=== PATIENT | female | born 1995 | race Caucasian/White ===

== ENCOUNTER 2024-12-31 08:52 | Emergency (ER) | payer OTHER, SELFPAY ==
--- NOTE | ~2024-12-31 | CT_ITS ---
EXAMINATION: CT abdomen pelvis wo con DATE: 12/31/2024 09:48 INDICATION: Abdominal pain. Nephrolithiasis. Hematuria. TECHNIQUE: Computed tomography (CT) of the abdomen and pelvis was performed without intravenous contr ast. Automated exposure control and iterative reconstruction technique were employed. The dose-length product was 960.03 mGy-cm. COMPARISON: None FINDINGS: Lung bases are clear. Heart size is normal. No pericardial or pleural effusion. Postoperative change of prior sleeve gastrectomy with suture line along the greater curvature of the stomach. Gallbladder not visualized and likely surgically absent. Liver, spleen, pancreas and bilateral adrenal glands are normal. Bilateral kidneys are normal with no nephrolithiasis or hydronephrosis. Bladder is decompres sed which limits evaluation. There is a 2 mm calcification in the deep left pelvis which appears more likely to represent a phlebolith than a stone in the distalmost left ureter. Bowels including the ap pendix are normal. Anteverted uterus and bilateral adnexa are normal. No free intraperitoneal gas or fluid. No pathologi phu enlarged abdominal or pelvic lymphadenopathy. Mild thoracic spondylosis with chronic appearing likely physiologic mild anterior wedging at T10-T12. IMPRESSION: 1. 2 mm calcification in the deep left pelvis which appears more likely near but not definitively blaine ng the distalmost left ureter and would favor a phlebolith over nonobstructing renal stone. No hydron ephrosis or hydroureter. 2. No other acute intra-abdominal/pelvic process. Reviewed, dictated and finalized at location A. IMPRESSION: 1. 2 mm calcification in the deep left pelvis which appears more likely near bu t not definitively along the distalmost left ureter and would favor a phlebolit h over nonobstructing renal stone. No hydronephrosis or hydroureter. 2. No other acute intra-abdominal/pelvic process.
[2024-12-31 08:57] VITALS: BP 137/91; PULSE 86; RESP 16; TEMP 36.4; O2SAT 98
--- OUTSIDE RECORDS SUMMARY | 2024-12-31 08:59 | XMS_ITS | Data Portability ---
Author Organization [facility] Address [address] [place] [address] Assessment No assessment recorded. Plan of Treatment Reminders Order Date Submit Date Provider Last Modified By Organization Details Last Modified Time Details Appointments None recorded. Lab SARS CoV 2 RNA (COVID-19), QL, stem sizer-PCR, respiratory specimen - SOB, exposed to pos COVID person [email or web address] 2019 020 [facility] ([facility]), [address] [place], [address], 0 17:47:17 hepatitis B surface Ab, quantitativ e, serum 2016 017 [facility], [address] [place] [address], [place] [address], [place], [address], 7 06:12:15 unlisted lab - bpertig+dip Ab+tetigg 2016 017 [facility], [address] [place] [address], [facility] [address], [place], [address], 7 06:12:14 MMR immunity, serum 2016 017 [facility], [address] [place] [address], [place] [address], [place], [address], 7 06:12:15 varicella-z alberto igg Ab screen, serum 2016 017 [facility], [address] [place] [address], [address], [place], [address], 7 06:12:16 unlisted lab - compliance drug analysis, ur 2016 017 [facility], [address] [facility], [address], [place], [address], 7 20:10:19 Referral None recorded. Procedures None recorded. Surgeries None recorded. Imaging None recorded. Medication Orders None recorded. Patient TargetsNo targets recorded. Patient Instructions Encounter Date Encounter Id Patient Instructions Last Modified By Organization Details Last Modified Time 11/01/2016 [id number] When You Want to Lose Weight: Care Instructions [facility] Not available 11/01/2016 14:40:06 She can not provide the record of previous immunization, therefore will do the serum titer. She has been informed about procedure of 2 steps Mantoux TB skin tests, will re-schedule the visit. [facility] Not available 11/01/2016 14:50:00 02/17/2020 [id number] Reviewed the following recommendations: -Stay home and separate from others as much as possible. -Monitor your symptoms and seek medical attention for trouble breathing, persistent chest pain, confusion, or bluish lips or face. -Wear a mask if you must be around other people. -Wash your hands often for 20 seconds with soap and water and clean high-touch surfaces daily -You may discontinue home isolation if your symptoms are improving and it has been 10 days since symptoms started. [email or web address] Not available 02/17/2020 13:09:05 Reason for Referral None Reported. Results Created Date Observation Date Name Description Value Unit Range Abnormal Flag Note LastModifiedBy Organization Detail LastModifiedTime 11/02/19 17 11/05/2016 bpert ig+di p Ab+te tigg tetanus antitoxoid IgG Ab 0.16 IU/mL <0.10 INTER PRETA TION: NON-P ROTEC TIVE <0.10 PROTE CTIVE >=0.1 0 RESUL TS FOR THIS TEST ARE FOR RESEA RCH PURPO SES ONLY BY THE ASSAY 'S MANUF ACTUR ER. THE PERFO RMANC E LON CTERI STICS OF THIS PRODU CT HAVE NOT BEEN ESTAB LISJOSETTE D. RESUL TS SHOUL D NOT BE USED A DIAGN OSTIC PROCE DURE WITHO UT CONFI RMATI ON OF THE DIAGN OSIS BY [facility] MEDIC ALLY ESTAB LISHE D DIAGN OSTIC PRODU CT OR PROCE DURE. Not Available [facility] ([facility]) [address] [place], [address], 11/06/2016 06:12:14 11/02/19 17 11/05/2016 bpert ig+di p Ab+te tigg diphtheria antitoxoid Ab 0.15 IU/mL <0.10 INTER PRETA TION: NON-P ROTEC TIVE <0.10 PROTE CTIVE >=0.1 0 FOR RESEA RCH USE ONLY. Not Available [facility] ([facility]) [address] [place], [address], 11/06/2016 06:12:14 11/02/1911/05/2016 bpert ig+di p Ab+te tigg B pertussis IgG Ab <0.95 index 0.00-0 .94 NEGAT BLUE <0.95 EQUIV OCAL 0.95 - 1.04 POSIT BLUE >1.04 Not Available [facility] ([facility]) [address] [place], [address], 11/06/2016 06:12:14 11/02/19 17 11/02/2016 MMR immun ity, serum rubella antibodies, IgG <0.90 index immune >0.99 below low normal NON-I MMUNE <0.90 EQUIV OCAL 0.90 - 0.99 IMMUN E >0.99 Not Available [facility] ([facility]) [address] [place], [address], 11/06/2016 06:12:15 11/02/19 17 11/02/2016 MMR immun ity, serum rubeola Ab, IgG <25.0 AU/mL immune >29.9 below low normal NEGAT BLUE <25.0 EQUIV OCAL 25.0 - 29.9 POSIT BLUE >29.9 PRESE NCE OF ANTIB ODIES TO RUBEO LA IS PRESU MPTIV E EVIDE NCE OF IMMUN ITY EXCEP T WHEN ACUTE INFEC TION IS SUSPE CTED. Not Available [facility] ([facility]) [address] [facility], [place], [address], 11/06/2016 06:12:15 11/02/19 17 11/02/2016 MMR immun ity, serum mumps abs, IgG 11.8 AU/mL immune >10.9 NEGAT BLUE <9.0 EQUIV OCAL 9.0 - 10.9 POSIT BLUE >10.9 A POSIT BLUE RESUL T GENER ALLY INDIC ATES PAST EXPOS URE TO MUMPS VIRUS OR PREVI OUS VACCI NATIO N. Not Available [facility] ([facility]) [address] [facility], [place], [address], 11/06/2016 06:12:15 11/02/19 17 11/02/2016 hepat itis B surfa ce Ab, quant itati ve, serum hepatitis B surf Ab quant <3.1 mIU/m L immuni ty>9.9 below low normal STATU S OF IMMUN ITY ANTI- HBS LEVEL ----- ----- ----- --- ----- ----- ---- INCON SISTE NT WITH IMMUN ITY 0.0 - 9.9 CONSI STENT WITH IMMUN ITY >9.9 Not Available [facility] ([facility]) [address] [facility], [place], [address], 11/06/2016 06:12:15 11/02/19 17 11/02/2016 varic luba- zoste r igg Ab scree n, serum varicella zoster IgG <135 index immune >165 below low normal NEGAT BLUE <135 EQUIV OCAL 135 - 165 POSIT BLUE >165 A POSIT BLUE RESUL T GENER ALLY INDIC ATES EXPOS URE TO THE PATHO GEN OR ADMIN ISTRA TION OF SPECI FIC IMMUN OGLOB ULINS , BUT IT IS NOT INDIC ATION OF ACTIV E INFEC TION OR STAGE OF DISEA SE. Not Available [facility] ([facility]) [address], [place], [address], 11/06/2016 06:12:15 11/02/19 17 11/07/2016 drug scree n, urine summary FINAL ===== ===== ===== ===== ===== ===== ===== ===== ===== ===== ===== ===== ===== === TOXAS SURE COMP DRUG VENESSA SIS,U R ===== ===== ===== ===== ===== ===== ===== ===== ===== ===== ===== ===== ===== === TEST RESUL T FLAG UNITS NO DRUGS DETEC ANKITA. ===== ===== ===== ===== ===== ===== ===== ===== ===== ===== ===== ===== ===== === TEST RESUL T FLAG UNITS REF RANGE CREAT ININE 72 MG/DL >=20 ===== ===== ===== ===== ===== ===== ===== ===== ===== ===== ===== ===== ===== === DECLA RED MEDIC ATION S: MEDIC ATION LIST WAS NOT PROVI DED. ===== ===== ===== ===== ===== ===== ===== ===== ===== ===== ===== ===== ===== === FOR CLINI JOSH CONSU LTATI ON, PLEAS E CALL [phone] ===== ===== ===== ===== ===== ===== ===== ===== ===== ===== ===== ===== ===== === Not Available [facility] [address], [place], [address], 11/07/2016 20:10:19 11/02/19 17 11/07/2016 drug scree n, urine pdf . Not Available [facility] [address], [place], [address], 11/07/2016 20:10:19 Result Notes None recorded. Procedures Surgical History Date Name Laterality Status Provider Name and Address Organization Details Recorded Time Cholecystectomy completed Attila Boswell [place] - [facility] 11/01/2016 14:06:33 Imaging Results None recorded. Procedure Notes None recorded. Medical Equipment None Reported. Allergies No known drug allergies Medications Name Sig Start Date Stop Date Status Note LastModified by Organization Details LastModified Time ibuprofen 800 mg tablet active Not Available Not Available Not Available metronidazole 500 mg tablet 11/01 completed Not Available Not Available Not Available acetaminophen 300 mg-codeine 30 mg tablet active Not Available Not Available Not Available sulfamethoxazole 800 mg-trimethoprim 160 mg tablet active Not Available Not Availabl e Not Available amoxicillin 500 mg tablet active Not Available Not Available No t Available hydrocodone 7.5 mg-acetaminophen 325 mg tablet active Not Available Not Availabl e Not Available cephalexin 500 mg capsule active Not Available Not Available N ot Available ranitidine 150 mg tablet active Not Available Not Available No t Available prednisone 50 mg tablet active Not Available Not Available Not Available promethazine 25 mg tablet active Not Available Not Available No t Available ibuprofen 600 mg tablet active Not Available Not Available Not Available loratadine 10 mg tablet active Not Available Not Available Not Available neomycin-polymyx in-hydrocort 3.5 mg-10,000 unit/mL-1 % ear drops,susp active Not Available Not Available N ot Available chlorhexidine gluconate 0.12 % mouthwash active Not Available Not Available No t Available [place] 0.25 mg-0.035 mg tablet active Not Available Not Available Not Available Vitals Date Recorded Body height Body weight Body mass index (BMI) Body temperature Oxygen saturation Oxygen saturation in Arterial blood by Pulse oximetry Heart rate Systolic blood pressure Diastolic blood pressure Provider Name and Address Organization Details Last Updated DateTime 7 172.72 cm 373491 g 51.8 kg/m2 97.4 [degF] 98 % 98 % 95 /min 112 mm[Hg] 68 mm[Hg] Attila Boswell MA [place] - [facility] 7 14:13:38 Date Recorded Body height Provider Name an d Address Organization Details Last Updated DateTime 11/05/2016 172.72 cm Tyler Zimmerman MD Attn: [address] [place], [address], [place] - [facility] 11/07/2016 18:36:25 Social History None recorded. Functional Status Question Answer Note LastModified by Organizat ion Details LastModified Time What is your level of alcohol consumption? Occasional [email or web address] Information not available 11/01/2016 Mental Status None recorded. Family History Nothing Reported. Medical History Condition Response Acid Reflux (GERD) Y Headaches Y Gynecological History Statement/Question Response Date of LMP 10/09/2016 Obstetrics History GPAL:G 0 P 0 0 0 0 Past Encounters Encounter ID Performer Location Encounter Start Date Encounter Closed Date Diagnosis/Indication Diagnosis SNOMED-CT Code Diagnosis ICD10 Code Diagnosis Note [id number] Tyler Zimmerman MD [facility] (Adult Med) [address] [place] [address] 11/01/2016 13:49:21 11/01/2016 15:00:48 Adult health examination 037497754 Z00.00 Will schedule skin TB tests 2 steps at least one week aprt according her school requests. Today is . Morbid obesity 933831820 E66.01 Diet, exercise and lose weight. e agreed. [id number] [facility] [address] [place] [address] 11/05/2016 10:24:07 11/08/2016 15:31:21 [id number] TERRY Earl [address] [place] [address] 02/17/2020 11:37:02 02/18/2020 09:15:40 Suspected COVID-19 590484148 Z03.818 D/w pt the current pandemic of COVID-19 and call for social isolation in order to blunt the curve and minimize risk and spread. Encouraged patient and family to take restrictio ns seriously. They have verbalized understand ing of such. Viral syndrome 876131008 B34.9 Health Concerns Section Related Observation LastModified by Organization Detai ls LastModified Time None Recorded Concern Status LastModified by Organization Details LastModified Time None Recorded Advance Directives Directive None Recorded Payers Encounter Date Sequence Insurance Name Policy Number Policy Goodson Covered Member ID Goodson Member ID Guarantor Name 11/01/2016 1 [facility] (MEDICAID HMO) [id number] Mell Malady [id number] Mell Malady 11/05/2016 1 [facility] (MEDICAID HMO) [id number] Mell Malady [id number] Mell Malady 02/17/2020 1 [facility] (MEDICAID HMO) [id number] Mell Malady [id number] Mell Malady Notes Date Note Type Note Provider Name and Address Organization Details Recorded Time 02/17/2020 text/html COVID ScreeningReported bypatient.Onset/Durati on of fever:no fever Associated Symptoms:shortness of breath; no cough; no shortness of breathCOVID-19 Symptoms December 2019Reported bypatient.COVID-19 Signs and Symptomscough resolved; fever resolved; shortness of breath resolved; shortness of breath same; chills resolved; repeated shaking with chills resolved; muscle pain resolved; headache resolved; sore throat resolved; loss of taste or smell resolved; vomiting or diarrhea resolved; fatigue resolved; anorexia resolved Contacts and Exposureclose contact with a confirmed or suspected case of COVID-19 Associated Symptoms:no sputum production; no wheezing; no runny nose; no vomiting; no diarrhea; no body aches; no nausea; no change in mental status; no hypotension; no tachycardia 24 yo female ,spoke via phone with C/O, SOB, exposed to pos COVID person ISAAC Contreras NP Attn: [address]ing[address] [place], [address], [facility] 02/17/2020 13:09:44 OBGyn Episode No OBEpisode recorded.
--- OUTSIDE RECORDS SUMMARY | 2024-12-31 09:00 | XMS_ITS | Continuity of Care Document ---
Author Organization [facility] Address [address] [facility] [place] [address] Phone Care Team Providers Care Galley Cook Name Role Phone Will Moore MD Unavailable Unavailable Allergies, Adverse Reactions, Alerts Substance Reaction Status Criticality No Known Allergies Active No Inform ation Medications Medication Instructions Dosage Effective Dates (start - stop) Status Comments No Drug Therapy Prescribed Procedures Procedure Date OFFICE/OUTPATIENT VISIT, EST OFFICE/OUTPATIENT VISIT, EST PREV VISIT, NEW, AGE 18-39 OFFICE/OUTPATIENT VISIT, NEW Advance Directives Directive Yes / No Effective Date File Name No Information Encounters Encounter Description Practice Location Reason(s) For Visit Diagnoses Date Provider Providers Copied on Encounter OFFICE/OUTPA TIENT VISIT, [facility], [address] [place], [address], [place] tel:[phone] [facility], [place] D (chief complaint) glucose1 (chief complaint) anemia1 (chief complaint) obesity1 (chief complaint) HyperglycemiaVitami n D deficiency, unspecifiedAnemiaBo dy mass index (BMI) 50-59.9 , adult Jun- 7 Oscar Solis. [address] [place], [place], [address] , [place]. tel:[phone] Referring Provider: Will Moore, [address] [facility] [place], [address]. tel:[phone] OFFICE/OUTPA TIENT VISIT, [facility], [address] [facility] [place], [place], [address], [place] tel:[phone] [facility], [place] obesity1 (chief complaint) HTN (chief complaint) Essential (primary) hypertensionBody mass index (BMI) 50-59.9 , adult 7 Oscar Solis. [address], [place], [place], [address] , . tel:[phone] Referring Provider: T[address], [place], [place], [address]. tel:[phone] PREV VISIT, NEW, AGE 18-39 [facility], [address], [place], [place], [address], tel:[phone] [facility], [place] PHysical (chief complaint) Encounter for general adult medical exam w abnormal findingsBody mass index (BMI) 50-59.9 , adultGERD w/o esophagitisEssentia l (primary) hypertension 7 Oscar Solis. [address], [address], [place], [place], [address] , . tel:[phone] Referring Provider: Tad [address], [place], [place], [address]. tel:[phone] Family History Family Member Type Diagnosis Age At Onset Brother Problem (finding) Alive and well Mother Problem (finding) Hypertension Father Problem (finding) Unknown Mother Problem (finding) Obesity Payers Payer name Insurance type Covered republican ID Authoriza tion(s) No Information Social History Type Description Quantity Date Captured Comments Alcohol Use Details beer Caffeine Use Details Unknown Tobacco Use Status Never smoked tobacco 2016 Smoking Status Never smoker Sex Female Vital Signs Date / Time: Height Weight BMI Pulse Rate Blood Pressure Temperature Respiratory Rate Body Surface Area Head Circumference BMI percentile Pulse Ox Inhaled Ox 1:00 PM 172.72 cm 362.00 lbs 55.0 4 kg/m eter (2) 78 /min 122/70 mm[Hg] 97.4 F 16 /min Chief Complaint And Reason For Visit From encounter dated '06/26/2017 11:00'. D (chief complaint). Description: Pt has low vitamin D. glucose1 (chief complaint). Description: Pt has mild high glucose. Pt denies any polyuria, polyripsia anemia1 (chief complaint). Description: Pt has mild anemia. Pt states that she has rather heavy period. Pt denies any dizziness pt denies any GI blood loss obesity1 (chief complaint). Description: Pt is morbidly obese Pt will do bypass surgery. pt needs monthly weight assessment form completed. Pt failed diet and exercise Plan Of Treatment Date Type Action Status No Information History Of Present Illness Encounter Date Complaint History Of Prese nt Illness D Pt has low vitam in D. glucose1 Pt has mild high glucose. Pt denies any polyuria, polyripsia anemia1 Pt has mild anem ia. Pt states that she has rather heavy period. Pt denies any dizziness pt denies any GI blood loss obesity1 Pt is morbidly o bese Pt will do bypass surgery. pt needs monthly weight assessment form completed. Pt failed diet and exercise obesity1 Pt is obese. Pt has been trying diet and exercise without any weight loss.Pt just attended the seminar and she wants to do the bypass surgery. Pt needs monthly weight assessment HTN Her BP is ok tod ay. PHysical Pt needs annual physical Pt is morbidly obese.. Her BMI is over 50 Pt has intermittent GERD symptoms pt drinks milk for symptoms which helps. Pt denies any abd pain. Pt feels burning sensation midepigastric area. PT denie any abd pain. Pt wants weight loss surgery Medications Administered Medication Instructions Dosage Effective Dates (start - stop) Status Comments No Drug Therapy Prescribed Instructions Date Instruction Additional Infor mation Prescribed Activity and Exercise Education Related to Dietary Surveillance and Counseling Prescribed Diet Educ ation/Lifestyle Education Regarding Diet Related to Dietary Surveillance and Counseling Increase physical activity Relat ed to Hyperglycemia Weight management Related to Hyp erglycemia Prescribed Activity and Exercise Education Related to Dietary Surveillance and Counseling Prescribed Diet Educ ation/Lifestyle Education Regarding Diet Related to Dietary Surveillance and Counseling Increase activity. Related to Es sential (primary) hypertension Follow a low sodium diet. Relate d to Essential (primary) hypertension Prescribed Activity and Exercise Education Related to Dietary Surveillance and Counseling Prescribed Diet Educ ation/Lifestyle Education Regarding Diet Related to Dietary Surveillance and Counseling Prescribed Activity and Exercise Education Related to Dietary Surveillance and Counseling Prescribed Diet Educ ation/Lifestyle Education Regarding Diet Related to Dietary Surveillance and Counseling Assessments Type Assessment Date assessment Hyperglycemia assessment Vitamin D deficiency, unspecifie d assessment Anemia assessment Body mass index (BMI) 50-59.9 , adult Mental Status Date Cognitive Assessment Orientation - Walton ed to time, place, person, situation.
--- OUTSIDE RECORDS SUMMARY | 2024-12-31 09:00 | XMS_ITS | Continuity of Care Document ---
Author Organization [facility] Address [address] [facility] [address] [place] [address] Phone Care Team Providers Care Cause Analyst Name Role Phone Michelle OD, Dmitriy Unavailable Unavailable Advance Directives Directive Yes / No Effective Date File Name No Information Encounters Encounter Description Practice Location Reason(s) For Visit Diagnoses Date Provider Providers Copied on Encounter [facility], [address], [place], [place], [address], [place] tel:[phone] [facility] No Information May- 2-200 3 Michelle OD Dmitriy. [address] , [address], [place], [address], [place]. tel:[phone] Family History Family Member Type Diagnosis Age At Onset No Information Payers Payer name Insurance type Covered green party ID Authoriza tion(s) Medicaid [facility] [id number] Social History Type Description Quantity Date Captured Comments Sex Female Smoking Status No Information Chief Complaint And Reason For Visit No Information Reason For Referral Reason For Referral No Information History Of Present Illness Encounter Date Complaint History Of Prese nt Illness No Information Functional Status Date Functional Assessmen t No Information Instructions Date Instruction Additional Infor mation No Information Assessments Type Assessment Date No Information Patient Care Teams Name Effective Dates (start - stop) Status Members No Information
--- OUTSIDE RECORDS SUMMARY | 2024-12-31 09:00 | XMS_ITS | Continuity of Care Document ---
Author Organization [facility] Address [address] [facility] [address] [place] [address] Phone Care Team Providers Care Landscape Horticulture Instructor Name Role Phone Will Moore MD Unavailable Unavailable Advance Directives Directive Yes / No Effective Date File Name No Information Encounters Encounter Description Practice Location Reason(s) For Visit Diagnoses Date Provider Providers Copied on Encounter [facility], [address] [place] [place], [address], [place] tel:[phone] [facility] No Information Oscar Solis. [address] [place], [address], [place]. tel:[phone] Family History Family Member Type Diagnosis Age At Onset No Information Payers Payer name Insurance type Covered democrat ID Authoriza tion(s) No Information Social History Type Description Quantity Date Captured Comments Sex Female Smoking Status No Information Chief Complaint And Reason For Visit No Information Plan Of Treatment Date Type Action Status No Information History Of Present Illness Encounter Date Complaint History Of Prese nt Illness No Information Instructions Date Instruction Additional Infor mation No Information Assessments Type Assessment Date No Information
--- OUTSIDE RECORDS SUMMARY | 2024-12-31 09:00 | XMS_ITS | Data Portability ---
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 All staff wore face coverings during this encounter, as well as provided additional cleaning and sanitizing of all surfaces, including countertops, pens, chairs, door handles, light switches, etc, prior to and following the patient s visit. [email or web address] Not available 09/23/2020 09:40:10 10/13/2021 10/13/2021 Annual gynecological exam performed. Patient will come back in a year unless there are new symptoms. [email or web address] Not available 10/13/2021 12:40:38 06/11/2024 06/11/2024 Annual gynecological exam performed. Patient will come back in a year unless there are new symptoms. [email or web address] Not available 06/11/2024 12:31:30 Plan of Treatment Reminders Order Date Submit Date Provider Last Modified By Organization Details Last Modified Time Details Appointments None recorded. Lab pap, IG + HR HPV - HPV regardless but if HPV is positive need subtyping 16,18/45 2023 024 [facility] (Lab), [address], [place], [address], 18:22:16 Referral None recorded. Procedures None recorded. Surgeries None recorded. Imaging None recorded. Medication Orders mupirocin 2 % topical ointment 2021 [email or web address] [id number], [address], [place], [place], [id number], 2 12:43:06 Bactrim DS 800 mg-160 mg tablet 2021 [email or web address] [facility] #[id number], [address], [place], [place], [id number], 2 12:43:11 Diflucan 150 mg tablet 2021 [email or web address] [facility] #[id number], [address], [place], [place], [id number], 2 12:43:03 nystatin 100,000 unit/gram topical powder 2021 022 [email or web address] [facility] #[id number], [address] , [place], [place], [id number], 4 12:40:50 Patient TargetsNo targets recorded. Patient Instructions Encounter Date Encounter Id Patient Instructions Last Modified By Organization Details Last Modified Time 09/23/2020 [id number] urine to be sent for culture [place] [id number] Not available 09/23/2020 09:39:55 Reason for Referral None Reported. Results Created Date Observation Date Name Description Value Unit Range Abnormal Flag Note LastModifiedBy Organization Detail LastModifiedTime 08/10/19 21 08/12/2020 pap, LB Pap test thin prep Negati ve for Intrae pithel ial Lesion or Malign jose normal ACCES SABRINA #: [id number] Sourc e: Cervi josh/E ndoce rvica l LMP: 2019 Date Taken : 08/10 Speci men Type: ThinP rep Vial Date Repor ashleigh: 021 Clini josh Data: Cytot ech: Treas erasto [place] s, CT( CP) Date Repor ashleigh: 021 Speci men Adequ acy: Satis facto ry for evalu ation Endoc ervic al/tr ansfo rmati on zone compo nent prese nt Gener al Categ oriza tion: NEGAT BLUE FOR INTRA EPITH ELIAL LESIO N OR MALIG ROBERTO The follo wing tests have been order ed as reque sted and a separ ate repor t will be issue d: Chlam ydia, Gonor rhoea e, and Trich omona s This speci men has been wilda zed by the ThinP rep Imagi ng Syste m, an inter activ e compu ter syste m which irene ts the lab in the [facility] of ThinP rep Pap Test slide s. Follo wing imagi ng, the slide was revie wed by a Cytot echno logis t and/o r Patho logis t. End of Repor t Techn ical servi ana provi ded by Ass iated Patho logis ts, [facility], d/b/a Path[facility] hillman, [address] [place] [address] De Gomez MD, Labor ator Dire tor. Case revie wed and diagn osis rende red at [facility] iated Patho logis ts, [facility], d/b/a Shavon blanchard, [address] [place] [address] De Gomez MD, Labor ator Dire tor. CONFI DENTI AL Not Available [facility] ([facility]) [address], [place], [address], 08/12/2020 09:31:54 08/10/19 21 08/12/2020 CT + NG DNA, PCR, unspe cifie d speci men trichomonas vaginalis, aptima (panther) NOT DETECT ED normal DNA testi ng perfo rmed by Trans cript ion Media ashleigh Ampli ficat ion (TMA) These resul ts shoul d be inter prete d in light of all clini josh and labor atory findi ngs. This assay is highl y accur ate, but rare false posit blue and negat blue resul ts may occur . Posit blue resul ts in low preva lence popul ation s may requi re re-ev aluat ion. A negat blue resul t does not precl ude a possi ble infec tion due to a speci men inade quacy or sampl ing error . Test perfo rmed by [facility], [facility], d/b/a [facility], [address], [place] [address] , Chapo Mcginnis ra, DO, Labor atory Direc tor. Not Available [facility] ([facility]) [address], [place], [address], 08/12/2020 09:31:54 08/10/19 21 08/12/2020 CT + NG DNA, PCR, unspe cifie d speci men neisseria gonorrhoeae, aptima NOT DETECT ED normal DNA testi ng perfo rmed by Trans cript ion Media ashleigh Ampli ficat ion (TMA) These resul ts shoul d be inter prete d in light of all clini josh and labor atory findi ngs. This assay is highl y accur ate, but rare false posit blue and negat blue resul ts may occur . Posit blue resul ts in low preva lence popul ation s may requi re re-ev aluat ion. A negat blue resul t does not precl ude a possi ble infec tion due to a speci men inade quacy or sampl ing error . Test perfo rmed by [facility] i[facility], [facility], d/b/a [facility] roup, [address], [place] [address] , Chapo Mcginnis ra, DO, Labor atory Direc tor. Not Available [facility] ([facility]) [address], [place], [address], 08/12/2020 09:31:54 08/10/19 21 08/12/2020 CT + NG DNA, PCR, unspe cifie d speci men chlamydia trachomatis, aptima DETECT ED abnormal DNA testi ng perfo rmed by Trans cript ion Media ashleigh Ampli ficat ion (TMA) These resul ts shoul d be inter prete d in light of all clini josh and labor atory findi ngs. This assay is highl y accur ate, but rare false posit blue and negat blue resul ts may occur . Posit blue resul ts in low preva lence popul ation s may requi re re-ev aluat ion. A negat blue resul t does not precl ude a possi ble infec tion due to a speci men inade quacy or sampl ing error . Test perfo rmed by Assoc iated Patho logis ts, [facility], d/b/a Path kady, [address] [facility] [address], [place] [address] , Chapo Mcginnis ra, DO, Labor atory Direc tor. 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 FINAL DIAGN OSIS: Negat blue for Intra epith elial Lesio n or Malig roberto (NIL) . Elect zahida horne maria g d by Oriana Osullivan , CT on 2021 at 3:01 PM ----- ----- ----- ----- ----- ----- ----- ----- ----- ----- ----- ----- ----- ----- ----- ----- ----- ---- COMME NT: Note: This speci men was revie wed by a Cytot echno logis t and/o r Patho logis t (as indic ated in this repor t) after evalu ation using the Thinp rep Imagi ng Syste m. CLINI JOSH INFOR MATIO N: Menst rual Statu s: LMP (if appli cable ): Clini josh Histo ry/Pr eviou s Pap: Type of Neopl ghanshyam (if appli cable ): Signi fican t Clini josh Findi ngs: Other Histo ry: Hormo misael (if appli cable ): PAP EDUCA JULITA L NOTE: The Pap Test is a scree cameron test with an inher ent false negat blue rate. Liqui d-bas ed sampl ing may decre ase, but will not elimi marline, false negat blue resul ts. A negat blue resul t does not precl ude the prese nce and/o r devel opmen t of disea se, since the prese nce of abnor mal cells in the sampl e depen ds on the locat ion of the lesio n and sampl ing techn ique. Jona nued regul ar scree cameron is the best metho d of cance r preve ntion . If repor ashleigh cytol ogic findi ng do not corre late with physi josh and/o r histo rical findi ngs, fur er inves tigat ion is recom lexa d, as lavelle connors nted. Not Available [facility] (Lab) [address], [place], [address], 10/21/2021 16:04:17 10/14/19 22 10/13/2021 TRICH OMONA S VAGIN ALEXANDER (RRNA ) trichomonas vaginalis ribosomal RNA (rrna) Negati ve negati ve Not Available [facility] (Lab) [address] [facility], [place], [address], 10/21/2021 16:04:18 10/14/19 22 10/13/2021 CT/GC (MORALES) , THINP REP VIAL chlamydia trachomatis, PCR Negati ve negati ve Not Available [facility] (Lab) [address] [facility], [place], [address], 10/21/2021 16:04:18 10/14/19 22 10/13/2021 CT/GC (MORALES) , THINP REP VIAL neisseria gonorrhoeae, PCR Negati ve negati ve Not Available [facility] (Lab) [address] [facility], [place], [address], 10/21/2021 16:04:18 06/11/20 24 06/11/2024 IMAGE GUIDE D PAP AND HPV REGAR DLESS image guided Pap, HPV regardless of Pap result SEE RESULT S BELOW CASE REPOR T: Cytol ogy Gynec ologi josh Repor t Case: [id number] Autho maciej ramirez Provi danis: Katerin salgado, Ning , ANP, [employer]PER[employer] Colle cted: 06/11 1300 Order ing Locat ion: [place] Patho log[facility] Recei gerber: 06/12 0202 First Ortega n: Chun Camacho, CT Rescr een: Karol Taylor Speci men: Ortega barnes Pap - Image d, Cervi x STATE MENT OF ADEQU ACY: UNSAT ISFAC TORY SPECI MEN ----- ----- ----- ----- ----- ----- ----- ----- ----- ----- ----- ----- ----- ----- ----- ----- ----- ---- FINAL DIAGN OSIS: Unsat isfac tory for evalu ation . Epith elial cells obscu red by blood and infla mmati on. Elect alexcharity cummins d by Jeffrytelly jenkins Karol snow on 06/19 at 5:17 PM ----- ----- ----- ----- ----- ----- ----- ----- ----- ----- ----- ----- ----- ----- ----- ----- ----- ---- HPV RESUL TS: HPV mRNA E6/E7 : No HPV mRNA Detec ashleigh NOTE: This high risk HPV mRNA assay detec ts fourt een high- risk HPV types (16, 18, 31, 33, 35, 39, 45, 51, 52, 56, 58, 59, 66, 68) witho ut diffe renti ation . COMME NT: Slide scree jayleen keya arauz due to rejec tion by the Thinp rep Imagi ng Syste m. CLINI JOSH INFOR MATIO N: Menst rual Statu s: LMP (if appli cable ): Clini josh Histo ry/Pr eviou s Pap: Type of Neopl ghanshyam (if appli cable ): Signi lee t Clini josh Findi ngs: Other Histo ry: Hormo misael (if appli cable ): Not Available [facility] (Lab) [address] [facility], [place], [address], 06/19/2024 18:22:16 Result Notes None recorded. Problems Name Problem SNOMED Code Status Onset Date Resolution Date Notes Provider Name and Address Organization Details Recorded Time Gestatio n period, 38 weeks 45163028 Completed 201709/15/2020 38 weeks gestatio n of pregnanc y;Practi ce ID: 0001 Radha abarca, [facility] 09:46:46 Body mass index 30+ - obesity 601738967 Completed 201709/15/2020 Body mass index (BMI) 50-59.9 , adult;Pr actice ID: 0001 Radha abarca, [facility] 09:46:26 Term pregnanc y delivere d 09623169 Completed 201709/15/2020 Encounte r for full-ter m uncompli cated delivery ;Practic e ID: 0001 Radha abarca, [facility] 09:47:24 Single live from singleto n pregnanc y 779462415 Completed 201709/15/2020 Single live ;Pr actice ID: 0001 Radha abarca, [facility] 09:47:15 Lochia finding Completed 201709/15/2020 Encounte r for routine postpart um follow-u p;Practi ce ID: 0001 Radha abarca, [facility] 09:46:53 Insertio n of intraute rine contrace ptive device Completed 201809/15/2020 Encounte r for insertio n of intraute rine contrace ptive device;P ractice ID: 0001 Radha abarca, [facility] 09:46:51 Pregnanc y test negative 206239801 Completed 201809/15/2020 Encounte r for pregnanc y test, result negative ;Practic e ID: 0001 Radha abarca, [facility] 09:47:03 Contrace ptive sheath status 931779598 Completed 201809/15/2020 Encounte r for routine checking of intraute rine contrace p dev;Prac ynes ID: 0001 Radha abarca, [facility] 09:46:33 Nausea 340061847 Completed 201809/15/2020 Nausea;P ractice ID: 0001 Radha abarca, [facility] 09:46:59 Heartbur n 44017680 Completed 201809/15/2020 Heartbur n;Practi ce ID: 0001 Radha abarca [facility] 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 09:47:18 Gestatio n period, 32 weeks 2293908 Completed 201709/15/2020 32 weeks gestatio n of pregnanc y;Record ed Elsewher e: No Locat ion: [facility] S ource: EHR Pai Gow Manager carolyn: N Practi ce ID: 0001 Richard lable Time: 10:30:00 AM Radha abarca [facility] 09:46:38 Clinical finding Completed 201709/15/2020 Obesity, unspecif ied;Antoine rded Elsewher e: No Locat ion: [facility] S ource: EHR Pai Gow Manager carolyn: N Practi ce ID: 0001 Richard lable Time: 09:30:00 AM Radha abarca [facility] 09:46:37 Syphilis test finding 618560806 Completed 201609/15/2020 Encounte r for screenin g for infectio ns with a predomin antly sexual mode of transmis sabrina;Rec orded Elsewher e: No Locat ion: [facility] S ource: EHR Pai Gow Manager carolyn: N Practi ce ID: 0001 Richard lable Time: 02:15:00 PM aRdha abarca [facility] 09:47:[address] Concept Completed 201809/15/2020 Encntr for general adult medical exam w/o abnormal findings ;Recorde d Elsewher e: No Locat ion: [facility] S ource: EHR Pai Gow Manager carolyn: N Practi ce ID: 0001 Richard lable Time: 10:00:00 AM Radha abarca, [facility] 1 09:47:17 Severe obesity complica ting pregnanc y [id number] 330397 Completed 201709/15/2020 Obesity complica ting pregnanc y, third trimeste r;Record ed Elsewher e: No [facility]: E[facility] Pai Gow Manager carolyn: N Practi ce ID: 0001 Richard lable Time: 10:30:00 AM Radha abarca, [facility] 1 09:47:14 Normal pregnanc y in multigra jennifer 23143491550 4106 Completed 201709/15/2020 Encounte r for suprvsn of normal pregnanc y, third trimeste r;Record ed Elsewher e: No Locat ion: [facility] S ource: EHR Pai Gow Manager carolyn: N Practi ce ID: 0001 Richard lable Time: 10:00:00 AM Radha abarca, [facility] 1 09:47:00 Third constitution party encounte r Completed 201509/15/2020 Advice sought regardin g sexual behavior of partner; Recorded Elsewher e: No Locat ion: [facility] S ource: EHR Pai Gow Manager carloyn: N Practi ce ID: 0001 Richard lable Time: 01:00:00 PM Radha abarca, [facility] 09:47:25 Rubella screenin g status 752735602 Completed 201709/15/2020 Encounte r for antenata l screenin g, unspecif ied;Antoine rded Elsewher e: No [facility] S ource: EHR Pai Gow Manager carolyn: N Practi ce ID: 0001 Richard lable Time: 02:00:00 PM Radha abarca [facility] 1 09:47:10 Breast finding [id number] Completed 201409/15/2020 Breast discharg e;Record ed Elsewher e: No Locat ion: [facility] S ource: EHR Pai Gow Manager carolyn: N Narda ce ID: 0001 Richard lable Time: 01:30:00 PM Radha abarca [facility] 1 09:46:27 Morbid obesity 961737928 Completed 201409/15/2020 Obesity, Morbid;R ecorded Elsewher e: No Locat ion: [facility] S ource: EHR Pai Gow Manager carolyn: N Narda ce ID: 0001 Richard lable Time: 01:00:00 PM Radha abarca [facility] 1 09:46:57 Low grade squamous intraepi thelial lesion on cervical Papanico laou smear 16130110621 105 Completed 201609/15/2020 Low grade intrepit h lesion cyto smr crvx (LGSIL); Recorded Elsewher e: No Locat ion: [facility] S ource: EHR Pai Gow Manager carolyn: N Narda ce ID: 0001 Richard lable Time: 10:45:54 AM Radha abarca [facility] 1 09:46:55 Clinical finding Completed 201809/15/2020 Presence of (intraut erine) contrace ptive device;R ecorded Elsewher e: No Locat ion: [facility] S ource: EHR Pai Gow Manager carolyn: N Narda ce ID: 0001 Richard lable Time: 03:15:00 PM Radha abarca [facility] 1 09:46:32 Speciali zed medical examinat ion Completed 201409/15/2020 Other specifie d chlamydi al diseases ;Recorde d Elsewher e: No [facility]: EHR Pai Gow Manager carolyn: N Narda ce ID: 0001 Richard lable Time: 01:00:00 PM Radha abarca [facility] 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 1 09:47:20 Pregnanc y, childbir th and puerperi um finding Completed 201709/15/2020 Encounte r for supervis ion of normal 1st pregnanc y;Record ed Elsewher e: No Locat ion: [facility] S ource: EHR Pai Gow Manager carolyn: N Gerardoti ce ID: 0001 Richard lable Time: 11:00:00 AM Radha abarca, [facility] 1 09:47:05 Antenata l screenin g Completed 201709/15/2020 Encounte r for other antenata l screenin g follow-u p;Record ed Elsewher e: No Locat ion: [facility] S ource: EHR Pai Gow Manager carolyn: N Gerardoti ce ID: 0001 Richard lable Time: 10:15:00 AM Radha abarca [facility] 1 09:46:18 Atypical squamous cells of undeterm ined signific ance on cervical Papanico laou smear 770252292 Completed 201509/15/2020 Atyp squam cell of undet signfc cyto smr crvx (ASC-US) ;Recorde d Elsewher e: No Locat ion: [facility] S ource: EHR Pai Gow Manager carolyn: N Gerardoti ce ID: 0001 Richard lable Time: 01:00:00 PM Radha abarca [facility] 09:46:24 Gestatio n period, 37 weeks [id number] Completed 201709/15/2020 37 weeks gestatio n of pregnanc y;Record ed Elsewher e: No Locat ion: [facility] S ource: EHR Pai Gow Manager carolyn: N Practi ce ID: 0001 Richard lable Time: 10:30:00 AM Radha abarca [facility] 09:46:45 Vaginola bial hernia Completed 201409/15/2020 Other specifie d noninfla mmatory disorder s of vagina;R ecorded Elsewher e: No Locat ion: [facility] S ource: EHR Pai Gow Manager carolyn: N Practi ce ID: 0001 Richard lable Time: 02:30:00 PM Radha abarca [facility] 09:47:27 Breast lump 01871231 Completed 201409/15/2020 Lump or mass in breast;P ractice ID: 0001 Radha abarca [facility] 09:46:29 Adult health examinat ion Completed 201409/15/2020 Routine general medical examinat ion at a health care facility ;Practic e ID: 0001 Radha abarca [facility] 09:46:15 Venereal disease screenin g Completed 201409/15/2020 Screenin g examinat ion for venereal disease; Practice ID: 0001 Radha Webb rima [facility] 09:47:28 Infectio n screenin g Completed 201409/15/2020 Encounte r for screenin g for oth infec/pa rastc diseases ;Practic e ID: 0001 Radha Webb rima [facility] 09:46:50 Secondar y amenorrh ea 276729470 Completed 201709/15/2020 Secondar y amenorrh ea;Pract ice ID: 0001 Radha abarca, [facility] 09:47:13 Pregnanc y detectio n examinat ion Completed 201709/15/2020 Encounte r for pregnanc y test, result positive ;Practic e ID: 0001 Radha abarca, [facility] 09:47:02 Gestatio n period, 9 weeks [id number] Completed 201709/15/2020 9 weeks gestatio n of pregnanc y;Practi ce ID: 0001 Radha abarca, [facility] 09:46:47 Pregnanc y, childbir th and puerperi um finding Completed 201709/15/2020 Encntr for suprvsn of normal first preg, first trimeste r;Practi ce ID: 0001 Radha abarca, [facility] 09:47:06 Pregnanc y, childbir th and puerperi um finding Completed 201709/15/2020 Encntr for suprvsn of normal first preg, second trimeste r;Practi ce ID: 0001 Radha abarca, [facility] 09:47:07 Antenata l screenin g for malforma tion Completed 201709/15/2020 Encounte r for antenata l screenin g for malforma tions;Pr actice ID: 0001 Radha abarca, [facility] 09:46:21 Medical examinat ion for suspecte d conditio n Completed 201709/15/2020 Encntr for susp prob w amnio cavity and membrane ruled out;Prac ynes ID: 0001 Radha abarca, [facility] 09:46:56 Gestatio n period, 33 weeks [id number] Completed 201709/15/2020 33 weeks gestatio n of pregnanc y;Practi ce ID: 0001 Radha abarca, [facility] 09:46:40 Gestatio n period, 34 weeks [id number] Completed 201709/15/2020 34 weeks gestatio n of pregnanc y;Practi ce ID: 0001 Radha abarca, [facility] 09:46:41 Pregnanc y, childbir th and puerperi um finding Completed 201709/15/2020 Pregnanc y related conditio ns, unspecif ied, third trimeste r;Practi ce ID: 0001 Radha abarca, [facility] 09:46:31 Gestatio n period, 35 weeks 47233001 Completed 201709/15/2020 35 weeks gestatio n of pregnanc y;Practi ce ID: 0001 Radha abarca, [facility] 09:46:42 Gestatio n period, 36 weeks 57731409 Completed 201709/15/2020 36 weeks gestatio n of pregnanc y;Practi ce ID: 0001 Radha abarca, [facility] 09:46:44 Screenin g for malignan t neoplasm of cervix Completed 201509/15/2020 Encounte r for screenin g for malignan t neoplasm of cervix;R ecorded Elsewher e: No Locat ion: [facility] S ource: EHR Pai Gow Manager carolyn: N Practi ce ID: 0001 Richard lable Time: 01:00:00 PM [facility] 09:47:11 Educatio n Completed 201809/15/2020 Encounte r for other general counseli ng and advice on contrace ption;Re corded Elsewher e: No Locat ion: [facility] S ource: EHR Pai Gow Manager carolyn: N Practi ce ID: 0001 Richard lable Time: 10:00:00 AM Radha Webb [facility] 1 09:46:35 Removal of intraute rine device Completed 201809/15/2020 Encounte r for removal of intraute rine contrace ptive device;R ecorded Elsewher e: No Locat ion: [facility] S ource: EHR Pai Gow Manager carolyn: N Practi ce ID: 0001 Richard lable Time: 10:00:00 AM Radha Webb [facility] 1 09:47:09 Amenorrh ea [id number] Completed 201709/15/2020 Amenorrh ea;Recor ded Elsewher e: No Locat ion: [facility] S ource: EHR Pai Gow Manager carolyn: N Practi ce ID: 0001 Richard lable Time: 08:30:00 AM Radha Webb [facility] 1 09:46:16 History of chlamydi al infectio n [id number] Completed 202008/30/2021 Dilcia Calvillo [facility] 2 17:53:44 Problem Notes None recorded. Procedures Surgical History Date Name Laterality Status Provider Name and Address Organization Details Recorded Time 10/14/19 22 Date of Last Pap Smear completed Thea Erickson [facility] 06/03/2023 09:49:23 08/05/19 22 laparoscopic sleeve gastrectomy completed Shirley Douglass [facility] 06/11/2024 12:42:18 07/05/20 08 Tonsillectomy completed Lavonneivan Webber [facility] 04/05/2020 12:16:17 Imaging Results None recorded. Procedure Notes None recorded. Medical Equipment None Reported. Allergies No known drug allergies Medications Name Sig Start Date Stop Date Status Note LastModified by Organization Details LastModified Time Mirena 21 mcg/24 hr (up to 8 years) 52 mg intrauter ine device 08/10 completed Not Available Not Available Not Available ibuprofen 800 mg tablet 08/09 completed Not Available Not Available Not Available fluconazo le 150 mg tablet TAKE 1 TABLET BY MOUTH EVERY OTHER DAY FOR 3 DOSES 10/13 completed Not Available Not Available Not Available Nystop 100,000 unit/gram topical powder APPLY TO THE AFFECTED AREA TWICE DAILY 06/11 completed Not Available Not Available Not Available sumatript an 50 mg tablet 10/13 completed Not Available Not Available Not Available acetamino phen 300 mg-codein e 30 mg tablet 08/09 completed Not Available Not Available Not Available sulfameth oxazole 800 mg-trimet hoprim 160 mg tablet TAKE 1 TABLET BY MOUTH EVERY 12 HOURS FOR 5 DAYS 10/13 completed Not Available Not Available Not Available Zofran 4 mg tablet take 1 by Oral route every 6 hours as needed 11/17 completed Prescrib ed Elsewher e: No [facility] By: marisol George r DateTime : 02/05/20 18 03:00:00 PM Not Available Not Available Not Available Metrogel Vaginal 0.75 % (37.5 mg/5 gram) insert 1 applicat orful by vaginal route every day at bedtime 02/26 completed Prescrib ed Elsewher e: No Locat ion: [facility] odify By: lee ann workman DateTime : 01/10/20 17 10:45:54 AM Not Available Not Available Not Available Flagyl 500 mg tablet take all 4 tablets in 1 dose 11/28 completed Prescrib ed Elsewher e: No [facility] By: marisol George r DateTime : 09/26/19 18 04:21:24 PM Not Available Not Available Not Available hydrocodo ne 7.5 mg-acetam inophen 325 mg tablet 08/09 completed Not Available Not Available Not Available promethaz ine 25 mg tablet 08/09 completed Not Available Not Available Not Available polymyxin B sulfate 10,000 unit-trim ethoprim 1 mg/mL eye drops INSTILL 1 DROP IN RIGHT EYE FOUR TIMES DAILY. MAY USE EVERY 4 HOURS WHILE AWAKE FOR 7 DAYS 09/12 completed Not Available Not Available Not Available mupirocin 2 % topical ointment APPLY SMALL AMOUNT TOPICALL Y TO THE AFFECTED AREA THREE TIMES DAILY FOR 7 DAYS 10/13 completed Not Available Not Available Not Available ergocalci ferol (vitamin D2) 1,250 mcg (50,000 unit) capsule TAKE ONE CAPSULE BY MOUTH EVERY 7 DAYS 06/11 completed Not Available Not Available Not Available ibuprofen 600 mg tablet 08/09 completed Not Available Not Available Not Available methylpre dnisolone 4 mg tablets in a dose pack 08/09 completed Not Available Not Available Not Available neomycin- polymyxin -hydrocor t 3.5 mg-10,000 unit/mL-1 % ear drops,mery p 08/09 completed Not Available Not Available Not Available azithromy naida 500 mg tablet TAKE 2 TABLETS BY MOUTH AT ONE TIME 09/15 completed Not Available Not Available Not Available Sprintec (28) 0.25 mg-0.035 mg tablet take 1 tablet by oral route every day 08/09 completed Prescrib ed Teo e: No Locat ion: [facility] odify By: [email or web address] Ariel r DateTime : 02/04/20 10:00:00 AM Not Available Not Available Not Available chlorhexi dine gluconate 0.12 % mouthwash 08/09 completed Not Available Not Available Not Available Vitals Date Recorded Body height Body mass index (BMI) Body weight Systolic blood pressure Diastolic blood pressure Systolic blood pressure Diastolic blood pressure Provider Name and Address Organization Details Last Updated DateTime 165.1 cm 63.9 kg/m2 121835. 47 g 144 mm[Hg] 89 mm[Hg] 137 mm[Hg] 88 mm[Hg] Radha Webb [facility] 1 10:01:07 Date Recorded Body height Body mass index (BMI) Body weight Systolic blood pressure Diastolic blood pressure Provider Name and Address Organization Details Last Updated DateTime 09/12/2021 168.91 cm 59.6 kg/m2 441875.1 4 g 110 mm[Hg] 75 mm[Hg] Dilcia Calvillo [facility] 2 09:35:58 Date Recorded Body mass index (BMI) Body weight Systolic blood pressure Diastolic blood pressure Systolic blood pressure Diastolic blood pressure Provider Name and Address Organization Details Last Updated DateTime 1 63.2 kg/m2 215663. 1 g 144 mm[Hg] 91 mm[Hg] 130 mm[Hg] 80 mm[Hg] Loraine Chaney [facility] 1 09:32:34 Date Recorded Body height Provider Name an d Address Organization Details Last Updated DateTime 09/23/2020 165.1 cm Radha Webb [facility] 09/15/2020 11:08:01 Date Recorded Systolic blood pressure Diastolic blood pressure Provider Name and Address Organization Details Last Updated DateTime 10/13/2021 122 mm[Hg] 74 mm[Hg] Nannette Hough, [facility] [address], [place], [address], [facility] 10/13/2021 12:58:49 Date Recorded Body height Body mass index (BMI) Body weight Provider Name and Address Organization Details Last Updated DateTime 10/13/2021 168.91 cm 60.6 kg/m2 258088.69 g Queenie Boyd [facility] 10/13/2021 12:41:43 Date Recorded Body height Body mass index (BMI) Body weight Systolic blood pressure Diastolic blood pressure Provider Name and Address Organization Details Last Updated DateTime 06/11/2024 168.91 cm 47.2 kg/m2 466014.9 3 g 119 mm[Hg] 86 mm[Hg] Shirley Douglass [facility] 4 12:40:32 Social History Question Answer Notes LastModified by Organizat ion Details LastModified Time Tobacco Smoking Status Never Smoker Fatimah Peterson [facility] 10/13/2021 12:30:33 Do You Have An Advance Directive? No Information n ot available 09/12/2021 How Many Years Have You Consumed Alcohol? 6 Information not available 09/12/2021 Are You Blind Or Do You Have Difficulty Seeing? No Information n ot available 08/30/2021 What Is Your Level Of Caffeine Consumption? Moderate Information not available 09/12/2021 In The 14 Days Before Symptom Onset, Have You Had Close Contact With A Laboratory-confirm ed COVID-19 While That Case Was Ill? No Information n ot available 09/12/2021 In The 14 Days Before Symptom Onset, Have You Had Close Contact With A Person Who Is Under Investigation For COVID-19 While That Person Was Ill? No Information not available 09/12/2021 Have You Been To An Area Known To Be High Risk For COVID-19? No Information not available 09/12/2021 Are You Deaf Or Do You Have Serious Difficulty Hearing? No Information not available 08/30/2021 What Type Of Diet Are You Following? SPECIFIC Information n ot available 09/12/2021 What Is The Highest Grade Or Level Of School You Have Completed Or The Highest Degree You Have Received? [id number] Information not available 09/12/2021 Are There Any Guns Present In Your Home? No Information not available 09/12/2021 Do You Use Protection During Sex? No Information not available 09/12/2021 Do You Use Your Seat Belt Or Car Seat Routinely? Yes Information not available 08/30/2021 Do You Have Smoke And Carbon Monoxide Detectors In Your Home? Yes Information not available 08/30/2021 How Much Tobacco Do You Smoke? No Information not available 09/12/2021 Do You Use Sunscreen Routinely? Yes Information not available 08/30/2021 Have You Used IV Drugs? No Information not available 09/12/2021 Sex: Unknown Functional Status Question Answer Note LastModified by Organizat ion Details LastModified Time Do you use any illicit or recreational drugs? No Information not available 08/30/2021 What is your level of alcohol consumption? Occasional Information not available 08/30/2021 Are you able to walk? 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 Occasional Information not available 08/30/2021 Mental Status Question Answer Note LastModified by Organization D etails LastModified Time Do you feel stressed (tense, restless, nervous, or anxious, or unable to sleep at night)? [id number] Information not available 08/30/2021 Family History Relationship Description Onset Age of this Age Resolved Age Notes LastModified by Organization Details LastModified Time Father No current problems or disability [email or web address] Not available 06/11 12:04:56 Mother No current problems or disability [email or web address] Not available 06/11 12:04:56 Unspecified Relation Malignant tumor of breast MGGM, PGGM Breast Cancer [email or web address] Not available 10/13/2021 12:48:19 Medical History Condition Response History of STI Y History of abnormal pap N Gynecological History Statement/Question Response Abnormal Pap Y Flow Moderate Date of LMP 06/05/2024 On BCP's at Conception? N N Was last menstrual period normal Y STIs/STDs Yes HPV Vaccine Y Duration of Flow (days) 5 Current Control Method None Age at First Child 22 Are cycles usually normal Y Sexually Active? N Menses Monthly Y Age of first menstrual cycle 11 Date of Last Pap Smear 10/13/2021 Sexual Problems? N Desired Control Method None LMP Definite N Obstetrics History GPAL:G 1 P 1 0 0 1 Type Value Full Term 1 Living 1 Total 1 Past Encounters Encounter ID Performer Location Encounter Start Date Encounter Closed Date Diagnosis/Indication Diagnosis SNOMED-CT Code Diagnosis ICD10 Code Diagnosis Note [id number] Darby Soto CNM [facility] [address] [address] 08/10/2020 09:26:18 08/10/2020 17:31:04 Gynecologic examination 23889030 Z01.419 Take Calcium with Vitamin D 1200mg daily if not receiving in daily diet. It is strongly advised to have an annual flu shot and up can obtain at most pharmacies . If you have not had a TDap shot in the last 10 years you should obtain one as well. Discussed with patient & provided with informatio n regarding Gardisil vaccine to prevent the 4 strains for HPV that cause cervical cancer if under age 26. Encourage safe sexual practices, to use condoms and limit partners if not already in a monogamous relationsh ip. Do monthly self breast exams. Have mammogram yearly or every other year depending on family history. BRCA testing is now available for patients with strong genetic history of female cancer. If interested contact the office. Engage in daily exercise of low impact aerobic exercise 45-60 minutes 4-5 times weekly. Avoid tobacco and illicit drugs as well as using moderation with alcohol intake less than 1-2 8 oz beverages daily. This lifestyle behavior pattern will lead to less health conditions and longer life span. If BMI greater than 25 weight watchers or dietary consult advised. Pt will have routine labs with pcp and contact him for bp follow up. Patient received above instructio ns, and questions have been answered. If you have any questions please call or respond to this email. Patient was made aware of the patient portal and may obtain a paper copy of today's plan if desired. [facility] ion care management [id number] Z30.9 Pt interested in getting another IUD. She will check with insurance to see if it is covered since she had one removed early. If covered she will call on the first day of her cycle to schedule placement. [id number] Jannet Stallings CNM [facility] [address] [address] 09/23/2020 09:16:04 09/23/2020 09:42:57 History of chlamydial infection 056755133 Z86.19 [id number] LISA Giordano[facility] [address] [address] 09/12/2021 09:27:08 09/12/2021 10:10:11 Folliculitis 60678836 L73.9 B37.2 Right breast folliculit is x 3wksAlso note some skin irritation suspect possible yeast component under right breast. Rx sent.Will f/u for re-exam breast and decide if we feel US is also recommende d. Counseled on medication R/B's, Most common side effects, & use. All questions were answered to patient satisfacti on. Time spent in visit is a total of 15 mins with at least 50% of visit consisting of counseling and review of plan of care. Additional precaution han measures were taken to minimize potential exposure to the Covid-19 virus during this patient s visit, including available hand maintenance millwright upon arrive, temperatur e check and being asked a series of screening questions. All staff wore face coverings during this encounter, as well as provided additional cleaning and sanitizing of all surfaces, including countertop s, pens, chairs, door handles, light switches, etc, prior to and following the patient s visit. Family his tory of breast cancer [id number] Z80.3 I have provided patient with [employer] cancer screen web [email or web address] requested she review this website & we will discuss in further detail completing this testing based on her reported family history. [id number] Nannette Hough , [facility] [address] [address] 10/13/2021 12:29:21 10/13/2021 13:01:52 Gynecologic examination [id number] Z01.419 Take Calcium with Vitamin D 1200mg daily if not receiving in daily diet. It is strongly advised to have an annual flu shot and up can obtain at most pharmacies . If you have not had a TDap shot in the last 10 years you should obtain one as well. Discussed with patient & provided with informatio n regarding Gardisil vaccine to prevent the 4 strains for HPV that cause cervical cancer if under age 26. Encourage safe sexual practices, to use condoms and limit partners if not already in a monogamous relationsh ip. Do monthly self breast exams. Have mammogram yearly or every other year depending on family history. BRCA testing is now available for patients with strong genetic history of female cancer. If interested contact the office. Engage in daily exercise of low impact aerobic exercise 45-60 minutes 4-5 times weekly. Avoid tobacco and illicit drugs as well as using moderation with alcohol intake less than 1-2 8 oz beverages daily. This lifestyle behavior pattern will lead to less health conditions and longer life span. If BMI greater than 25 weight watchers or dietary consult advised. Patient received above instructio ns, and questions have been answered. If you have any questions please call or respond to this email. Patient was made aware of the patient portal and may obtain a paper copy of today's plan if desired. Pap sentSTD sentSame sex relationsh ipGenetic screen discussed- declinedMa mmo-start at age 30yoNo other issues or questions. [id number] Johnathon Henderson MD [facility] [address] [address] 06/11/2024 12:03:55 06/11/2024 13:33:48 Gynecologic examination [id number] Z01.419 Annual gynecologi josh exam performed. Patient will come back in a year unless there are new symptoms. Suggest Calcium with Vitamin D if not eating in diet. Patient advised to get annual flu shot. Recommend yearly physicals and perform monthly breast exams. Genetic testing is available for patients with family history of cancer. Engage in safe sexual practices, use condoms. Encouraged to have daily exercise. Avoid tobacco and illicit drugs, moderation of alcohol. If BMI greater than 25 dietary consult advised. If you have any questions please call or email. mammogram- n/a colon cancer screening - n/a DEXA scan- n/a Pap smear- pap w/ HPV collected today laboratory evaluation - PCP STI testing - declined, not [facility] Concerns Section Related Observation LastModified by Organization Detai ls LastModified Time None Recorded Concern Status LastModified by Organization Details LastModified Time None Recorded Advance Directives Directive N: Payers Encounter Date Sequence Insurance Name Policy Number Policy Goodson Covered Member ID Goodson Member ID Guarantor Name 08/10/2020 1 [facility] (MEDICAID HMO) [id number] Mell Malady [id number] Mell Hannon Malady 09/23/2020 1 [facility] (MEDICAID HMO) [id number] Mell Malady [id number] Mell Hannon Malady 09/12/2021 1 [facility] (MEDICAID HMO) [id number] Mell Malady [id number] Mell Hannon Malady 10/13/2021 1 [facility] (MEDICAID HMO) [id number] Mell Balderas [id number] Mell Balderas 06/11/2024 1 [facility] [id number] Mell Balderas [id number] Mell Balderas Notes Date Note Type Note Provider Name and Address Organization Details Recorded Time 08/10/2020 text/html Annual GYNReport ed bypatient.Menstrual cycle:Normal menses Urinary symptoms:No hematuria; No incontinence Vulva:No genital lesion Vagina:Normal vaginal discharge Breast:No breast pain; No breast lump; No nipple discharge Sexual complaints:No sexual complaints; No pain during intercourse; Normal libido Menopausal Symptoms:No menopausal symptoms; Normal vaginal lubrication Psychological symptoms:No depression; No anxiety; No PMDD Darby abarca, [facility] 08/10/2020 10:08:08 09/23/2020 text/html blayne, chlamydia, never ad sxs, tx and broke up with boyfriend Jannet Stallings CNM [address], [place], [address], [facility] 09/23/2020 09:40:27 09/12/2021 text/html Breast ProblemsReported bypatient.Location:[facility] Onset/Timin-4 weeks; unrelated to menses Duration:intermittent Quality:asymptomatic; no bloody discharge; no brown discharge; no milky discharge; no yellow-clear discharge; no yellow-green discharge; non-tender; improving; no mass;localized(Follic ular irritation that have created boils.) Severity:mild Context:prior mammogram normal; performs breast self-examination; no breast implants; no history of breast cancer; no radiation treatment; no chemotherapy; no cancer; no miscarriages; recent MRI normal; lymph node status negative;family history of breast cancer;1 prior biopsies(Fatty cyst removed age 15yo); no current estrogen use Modifying Factors:no recent change in exercise habits; no recent changes in weight; no recent changes in diet; no recent changes in medication dosage of hormone replacement therapy Alleviating Factors:none Aggravating Factors:none Associated Symptoms:no fever; no chills; no breast reddening; no nipple discharge; no sore nipples; no nipple inversion; breasts feel normal; no breast swelling; no arm pain; no arm swelling; no chest pain; no malaise; no breast lump; no change in breast skin [facility]annette Hough [facility] [address], [place], [address], [facility] 09/12/2021 10:09:48 10/13/2021 text/html Annual GYNReport ed bypatient.History:no gynecologic complaints Menstrual cycle:Normal menses Urinary symptoms:No hematuria; No incontinence Vulva:No genital lesion Vagina:Normal vaginal discharge Breast:No breast pain; No breast lump; No nipple discharge Current Contraception:Monogam ous relationship (Same sex relationship); Requests testing for sexually transmitted infections Sexual complaints:No sexual complaints; No pain during intercourse; Normal libido Menopausal Symptoms:No menopausal symptoms; Normal vaginal lubrication Psychological symptoms:No depression; No anxiety; No PMDD Preventive measures:Encourage self breast examination; Encourage regular exercise; Encourage no tobacco use; Encourage regular mammograms starting age 40; Followed with Q3 year pap smear and high risk HPV typing; Needs to schedule mammogram (Start mammo's 28yo) [facility]annette Hough [facility] [address], [place], [address], [facility] 10/13/2021 13:01:02 06/11/2024 text/html Annual GYNReport ed bypatient.History:no gynecologic complaints Menstrual cycle:Normal menses Urinary symptoms:No hematuria; No incontinence Vulva:No genital lesion Vagina:Normal vaginal discharge Breast:No breast pain; No breast lump; No nipple discharge Current Contraception: control not practiced (not sexually active) Sexual complaints:No sexual complaints; No pain during intercourse; Normal libido Menopausal Symptoms:No menopausal symptoms; Normal vaginal lubrication Psychological symptoms:No depression; No anxiety; No PMDD Preventive measures:Encourage self breast examination; Encourage regular exercise; Encourage no tobacco use; Encourage regular mammograms starting age 40 Patient presents for annual well woman exam. Patient denies concerns today. Not sexually active. Shirley abarca, [facility] 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 Status 08/09/19 21 1 CLOSED Fetus Data First Name Last Name Admitted to NICU Weight (g) Sex Living Outcome Pediatric Complications Fetus ID Race Codes Race Delivery Type 3656.85 [id number] Vaginal Delivery Lyndon Calculation Initial Lyndon Date Initial Exam Date Initial Exam Provider Initial Ultrasound Date Last Menstrual Period Date Ultra Sound Weeks Gestation 0 Eighteen To Twenty Week Lyndon Update Ultra Sound Date Fundal Height At Umbil Quickening Date Ultra Sound Latest Weeks Gestation Final Lyndon Confirmed By Final Lyndon Confirmed Date Final Lyndon Date Ultra Sound Latest Days Gestation 0 0 Menstrual History Last Menstrual Date Menses Monthly On Bcp Conception Prior Menses Frequency Hcg Plus Date Menarche Onset Age Delivery Information Delivery Date Delivery Type Labor Anesthesia Weeks Gestation Incision Type Labor Labor Length Hrs Delivered By Post Complications Tubal Sterilization Discharge Date Comments 8 38.1 Discharge Information Feeding Method Contraceptive Method Maternal HG B and HCT Levels
--- OUTSIDE RECORDS SUMMARY | 2024-12-31 09:00 | XMS_ITS | Data Portability ---
Author Organization [place] - [facility], Main Office Address [address] [place] [address] Assessment No assessment recorded. Plan of Treatment Reminders Order Date Submit Date Provider Last Modified By Organization Details Last Modified Time Details Appointments None recorded. Lab lipid panel, serum 2023 024 [facility] (Lab), [address] [place], [address], 4 05:03:16 TSH, serum or plasma 2023 024 [facility] (Lab), [address] [place], [address], 4 05:03:22 CBC w/ auto diff 2023 024 [facility] (Lab), [address] [place], [address], 4 05:03:20 CMP, serum or plasma 2023 024 [facility] (Lab), [address] [place], [address], 4 05:03:19 vitamin D, 25-hydroxy , total, serum 2023 024 [facility] (Lab), [address] [place], [address], 4 05:03:21 Referral None recorded. Procedures None recorded. Surgeries None recorded. Imaging MRI, brain, w/o contrast [id number] [place] [address] ([facility]), [address] [place], [address], 4 08:42:36 Medication Orders Ubrelvy 50 mg tablet 2023 024 [email or web address] [id number], [address], [place], [place], [id number], 4 14:12:59 Patient TargetsNo targets recorded. Patient InstructionsNo instructions recorded. Reason for Referral None Reported. Results Created Date Observation Date Name Description Value Unit Range Abnormal Flag Note LastModifiedBy Organization Detail LastModifiedTime 02/17/2002/16/2021 VITAM IN D 25-HY DROXY [id number] 19.3 NG/mL 30-100 low Vitam in D Statu s: Defic ient: <20 ng/mL Insuf ficie nt: 20-29 ng/mL Suffi cient : 30-10 0 ng/mL Not Available [facility] (Lab) [address] [place], [address], 02/16/2021 17:02:51 02/17/2002/16/2021 TSH thyroid-stim ulating hormone 1.890 uIU/m L 0.465- 4.680 Not Available [facility] (Lab) [address] [place], [address], 02/16/2021 15:48:17 02/17/2002/16/2021 T4 FREE free T4 1.07 NG/dL 0.78-2 .19 Not Available [facility] (Lab) [address] [place], [address], 02/16/2021 15:30:46 02/17/2002/16/2021 NT-IN O BNP ntbnp 65.6 pg/mL 0-125 Not Available [facility] (Lab) [address] [place], [address], 02/16/2021 15:24:13 02/17/20 21 02/16/2021 COMPR EHENS BLUE METAB OLIC PANEL sodium 140 mmol/ L 137-14 5 Not Available [facility] (Lab) [address] [place], [address], 02/16/2021 15:24:07 02/17/20 21 02/16/2021 COMPR EHENS BLUE METAB OLIC PANEL potassium 4.3 mmol/ L 3.5-5. 1 Not Available [facility] (Lab) [address] [place], [address], 02/16/2021 15:24:07 02/17/20 21 02/16/2021 COMPR EHENS BLUE METAB OLIC PANEL chloride 107 mmol/ L 98-107 Not Available [facility] (Lab) [address] [place], [address], 02/16/2021 15:24:07 02/17/20 21 02/16/2021 COMPR EHENS BLUE METAB OLIC PANEL carbon dioxide 24 mmol/ L 22-30 Not Available [facility] (Lab) [address] [place], [address], 02/16/2021 15:24:07 02/17/20 21 02/16/2021 COMPR EHENS BLUE METAB OLIC PANEL agap 13.3 mmol/ L 14-22 low Not Available [facility] (Lab) [address] [place], [address], 02/16/2021 15:24:07 02/17/20 21 02/16/2021 COMPR EHENS BLUE METAB OLIC PANEL glucose 96 mg/dL 70-99 Not Available [facility] (Lab) [address] [place], [address], 02/16/2021 15:24:07 02/17/20 21 02/16/2021 COMPR EHENS BLUE METAB OLIC PANEL BUN 11 mg/dL 8-19 Not Available [facility] (Lab) [address] [place], [address], 02/16/2021 15:24:07 02/17/20 21 02/16/2021 COMPR EHENS BLUE METAB OLIC PANEL creatinine 0.59 mg/dL 0.66-1 .25 low Not Available [facility] (Lab) [address] [place], [address], 02/16/2021 15:24:07 02/17/20 21 02/16/2021 COMPR EHENS BLUE METAB OLIC PANEL GFR >60 Refer ence Range : [place] ge GFR Healt hy Adult : >60 mL/mi n/1.7 3 m2 Chron ic Kidne y Disea se: 15-60 mL/mi n/1.7 3 m2 Kidne y Failu re: <15/m L/min /1.73 m2 www.n iddk. nih.g ov MDRD study equat ion hasn' t been valid ated in child nicky <18 yrs of age, pregn ant women , the elder ly >85 yrs of age, or in some racia l or ethni c subgr oups, suc as Hispa nics. Outsi de the valid ated lonnie eters , estim ated GFR is less accur ate requi ring clini karen judgm ent on a case by case basis . Clini karen inter preta tion for other races and ages must be made by the clini suly . Futhe rmore , any of th e limit ation s with the use of serum creat inine relat ed to nutri chandrakant l statu s o r medic ation usage hasn' t accou nted for the MDRD Study equat ion. For perso ns < 18 yrs of age, a pedia tric GFR calcu lator can be locat ed on the F websi te: https ://jess farias.kralee mills/pr fideliaess ional s/kdo qi/gf r_cal culat or Not Available [facility] (Lab) [address] [place], [address], 02/16/2021 15:24:07 02/17/20 21 02/16/2021 COMPR EHENS BLUE METAB OLIC PANEL alkaline phosphatase 102 U/L 38-126 Not Available [facility] (Lab) [address] [place], [address], 02/16/2021 15:24:07 02/17/20 21 02/16/2021 COMPR EHENS BLUE METAB OLIC PANEL alanine aminotransfe rase 20 U/L 0-35 Not Available [facility] (Lab) [address] [place], [address], 02/16/2021 15:24:07 02/17/20 21 02/16/2021 COMPR EHENS BLUE METAB OLIC PANEL aspartate aminotransfe rase 25 U/L 15-37 Not Available [facility] (Lab) [address] [place], [address], 02/16/2021 15:24:07 02/17/20 21 02/16/2021 COMPR EHENS BLUE METAB OLIC PANEL bilirubin, total 0.60 mg/dL 0.20-1 .30 Not Available [facility] (Lab) [address] [place], [address], 02/16/2021 15:24:07 02/17/20 21 02/16/2021 COMPR EHENS BLUE METAB OLIC PANEL calcium 9.3 mg/dL 8.4-10 .2 Not Available [facility] (Lab) [address] [place], [address], 02/16/2021 15:24:07 02/17/20 21 02/16/2021 COMPR EHENS BLUE METAB OLIC PANEL total protein 7.6 g/dL 6.3-8. 2 Not Available [facility] (Lab) [address] [place], [address], 02/16/2021 15:24:07 02/17/20 21 02/16/2021 COMPR EHENS BLUE METAB OLIC PANEL albumin 4.3 g/dL 3.4-5. 0 Not Available [facility] (Lab) [address] [place], [address], 02/16/2021 15:24:07 02/17/20 21 02/16/2021 COMPR EHENS BLUE METAB OLIC PANEL globulin 3.3 g/dL 2.6-4. 2 Not Available [facility] (Lab) [address] [place], [address], 02/16/2021 15:24:07 02/17/20 21 02/16/2021 COMPR EHENS BLUE METAB OLIC PANEL A/G ratio 1.3 ratio 1.0-2. 0 Not Available [facility] (Lab) [address] [place], [address], 02/16/2021 15:24:07 02/17/20 21 02/16/2021 LIPID PANEL cholesterol 168 mg/dL 140-19 9 NIH KIMMIE NSUS RECOM MENDA TION FOR NINO STERO L: ADULT CHILD LOW RISK: <200 <170 BORDE RLINE : <200- 239 ----- HIGH RISK: >240 >200 Not Available [facility] (Lab) [address] [place], [address], 02/16/2021 15:24:03 02/17/20 21 02/16/2021 LIPID PANEL triglyceride s 130 mg/dL 0-150 NIH KIMMIE NSUS REPOR T RECOM MENDA TION FOR TRIGL YCERI GREGG: ADULT CHILD LOW RISK: <150 ----- BODER LINE: 150-1 99 ----- HIGH RISK: >200 ----- Not Available [facility] (Lab) [address] [place], [address], 02/16/2021 15:24:03 02/17/20 21 02/16/2021 LIPID PANEL HDL cholesterol 61 mg/dL 40- Not Available [facility] (Lab) [address] [place], [address], 02/16/2021 15:24:03 02/17/20 21 02/16/2021 LIPID PANEL LDL cholesterol, calculated 81 mg/dL 0-130 NIH KIMMIE NSUS REPOR T RECOM MENDA TIONS FOR LDL: ADULT CHILD LOW RISK <130 <110 (OPTI MAL LDL) <100 ----- BORDE RLINE : 130-1 59 ----- HIGH RISK: >160 >130 A TRIGL YCERI DE RESUL T >400 INVAL IDATE S THE CALCU LATIO N FOR LDL FRACT IONAT ION - THE LDL RESUL T WILL NOT BE REPOR ANKITA. Not Available [facility] (Lab) [address] [place], [address], 02/16/2021 15:24:03 02/17/2002/16/2021 HEMOG LOBIN A1C HA1C 5.5 % 4.0-6. 0 Diabe maria antonia Scree cameron Crite artur: <5.7% Consi stent with absen ce of diabe maria antonia 5.7-6 .4% Consi stent with incre ased risk for diabe maria antonia (pred iabet es) >OR=6 .5% Consi stent with diabe maria antonia REFER ENCE: Diabe maria antonia Care 2016, 39(Urban ppl.1 ):s13 -s22 Not Available [facility] (Lab) [address] [place], [address], 02/16/2021 14:58:22 02/17/20 21 02/16/2021 CBC/C OMPLE TE BLD COUNT W/DIF F white blood cells 7.8 x10'3 /uL 4.2-10 .8 Not Available [facility] (Lab) [address] [place], [address], 02/16/2021 14:10:10 02/17/20 21 02/16/2021 CBC/C OMPLE TE BLD COUNT W/DIF F red blood cells 4.47 x10'6 /uL 3.80-5 .20 Not Available [facility] (Lab) [address] [place], [address], 02/16/2021 14:10:10 02/17/20 21 02/16/2021 CBC/C OMPLE TE BLD COUNT W/DIF F hemoglobin 12.3 g/dL 12.0-1 5.6 Not Available [facility] (Lab) [address] [place], [address], 02/16/2021 14:10:10 02/17/20 21 02/16/2021 CBC/C OMPLE TE BLD COUNT W/DIF F hematocrit 37.7 % 35.7-4 5.7 Not Available [facility] (Lab) [address] [place], [address], 02/16/2021 14:10:10 02/17/20 21 02/16/2021 CBC/C OMPLE TE BLD COUNT W/DIF F mean red cell volume 84.3 fL 82.0-9 9.0 Not Available [facility] (Lab) [address] [place], [address], 02/16/2021 14:10:10 02/17/20 21 02/16/2021 CBC/C OMPLE TE BLD COUNT W/DIF F mean red cell hemoglobin 27.5 pg 27.0-3 3.0 Not Available [facility] (Lab) [address] [place], [address], 02/16/2021 14:10:10 02/17/20 21 02/16/2021 CBC/C OMPLE TE BLD COUNT W/DIF F mean RBC HGB concentratio n 32.6 g/dL 31.0-3 6.0 Not Available [facility] (Lab) [address] [place], [address], 02/16/2021 14:10:10 02/17/20 21 02/16/2021 CBC/C OMPLE TE BLD COUNT W/DIF F red cell distribution width 13.6 % 11.8-1 5.5 Not Available [facility] (Lab) [address] [place], [address], 02/16/2021 14:10:10 02/17/2002/16/2021 CBC/C OMPLE TE BLD COUNT W/DIF F platelets 337 x10'3 /uL 150-40 0 Not Available [facility] (Lab) [address] [place], [address], 02/16/2021 14:10:10 02/17/20 21 02/16/2021 CBC/C OMPLE TE BLD COUNT W/DIF F mean platelet volume 10.6 fL 9.0-12 .4 Not Available [facility] (Lab) [address] [place], [address], 02/16/2021 14:10:10 02/17/20 21 02/16/2021 CBC/C OMPLE TE BLD COUNT W/DIF F neutrophils 53.1 % 39.0-7 2.0 Not Available [facility] (Lab) [address] [place], [address], 02/16/2021 14:10:10 02/17/2002/16/2021 CBC/C OMPLE TE BLD COUNT W/DIF F lymphocytes 36.9 % 16.0-4 7.0 Not Available [facility] (Lab) [address] [place], [address], 02/16/2021 14:10:10 02/17/2002/16/2021 CBC/C OMPLE TE BLD COUNT W/DIF F monocytes 7.7 % 5.0-12 .0 Not Available [facility] (Lab) [address] [place], [address], 02/16/2021 14:10:10 02/17/20 21 02/16/2021 CBC/C OMPLE TE BLD COUNT W/DIF F eosinophils 1.4 % 1.0-7. 0 Not Available [facility] (Lab) [address] [place], [address], 02/16/2021 14:10:10 02/17/2002/16/2021 CBC/C OMPLE TE BLD COUNT W/DIF F basophils 0.6 % 0.0-2. 0 Not Available [facility] (Lab) [address] [place], [address], 02/16/2021 14:10:10 02/17/2002/16/2021 CBC/C OMPLE TE BLD COUNT W/DIF F immature granulocytes 0.3 % 0.00-0 .50 Not Available [facility] (Lab) [address] [place], [address], 02/16/2021 14:10:10 02/17/2002/16/2021 CBC/C OMPLE TE BLD COUNT W/DIF F neutrophils, absolute count 4.15 x10'3 /uL 1.5-8. 0 Not Available [facility] (Lab) [address] [place], [address], 02/16/2021 14:10:10 02/17/2002/16/2021 CBC/C OMPLE TE BLD COUNT W/DIF F lymphocytes, absolute count 2.88 x10'3 /uL 1.07-3 .43 Not Available [facility] (Lab) [address] [place], [address], 02/16/2021 14:10:10 02/17/2002/16/2021 CBC/C OMPLE TE BLD COUNT W/DIF F monocytes, absolute count 0.60 x10'3 /uL 0.29-0 .99 Not Available [facility] (Lab) [address] [place], [address], 02/16/2021 14:10:10 02/17/2002/16/2021 CBC/C OMPLE TE BLD COUNT W/DIF F eosinophils, absolute count 0.11 x10'3 /uL 0.02-0 .53 Not Available [facility] (Lab) [address] [place], [address], 02/16/2021 14:10:10 02/17/20 21 02/16/2021 CBC/C OMPLE TE BLD COUNT W/DIF F basophils, absolute count 0.05 x10'3 /uL 0.01-0 .08 Not Available [facility] (Lab) [address] [place], [address], 02/16/2021 14:10:10 02/17/2002/16/2021 CBC/C OMPLE TE BLD COUNT W/DIF F immature granulocytes ,absolute 0.02 x10'3 /uL 0.00-0 .05 Not Available [facility] (Lab) [address] [place], [address], 02/16/2021 14:10:10 02/17/20 21 02/16/2021 CBC/C OMPLE TE BLD COUNT W/DIF F nucleated red blood cells 0.0 % -0 Not Available [facility] (Lab) [address] [place], [address], 02/16/2021 14:10:10 02/17/20 21 02/16/2021 CBC/C OMPLE TE BLD COUNT W/DIF F NRBC# 0.00 x10'3 /uL Not Available [facility] (Lab) [address] [place], [address], 02/16/2021 14:10:10 02/24/20 21 02/23/2021 US, taylor johnson sjerri [facility] No observ ation record ed. [id number] [facility] [address], [place], [address], 10/03/2022 17:15:46 02/26/20 21 02/23/2021 US, echoc ardio gram, trans thora cic, compl ete, w/ color flow No observ ation record ed. [id number] [facility] [address], [place], [address], 10/03/2022 17:15:46 Result Notes None recorded. Problems Name Problem SNOMED Code Status Onset Date Resolution Date Notes Provider Name and Address Organization Details Recorded Time Gallstone 275438880 Active Not Available [facility] 3 17:15:21 Vitamin D deficiency 14849681 Active 2023 Sven maurer MD [address], [place], [address] , [employer] 4 11:26:44 Migraine 32724528 Active 2023 Sven maurer MD [address], [address], [place], [address] , [employer] 4 12:10:37 Obesity 909963723 Active 2023 Sven maurer MD [address], [place], [address] , [employer] 4 12:12:29 Essential hypertension 76135777 Active 2023 Luis Presley LPN null, [employer] [facility] 4 15:57:28 Hypothyroidis m 09574863 Active 2023 Luis Presley LPN null, [employer] [facility] 4 15:57:55 Hyperlipidemi a 93687736 Active 2023 Luis Presley LPN null, [employer] [facility] 4 15:58:20 Problem Notes None recorded. Procedures Surgical History Date Name Laterality Status Provider Name and Address Organization Details Recorded Time cholecystectomy completed Not Available [facility] 3 17:15:02 Remove tonsils and adenoids complete d Not Available [facility] 3 17:15:02 esophagogastroduodenoscopy completed Not Available [facility] 3 17:15:02 laparoscopic sleeve gastrectomy completed FRED Lawson [place] [facility] 4 11:36:56 Imaging Results None recorded. Procedure Notes None recorded. Medical Equipment None Reported. Allergies No known drug allergies Medications Name Sig Start Date Stop Date Status Note LastModified by Organization Details LastModified Time ibuprofen 800 mg tablet TK 1 T PO Q 6 TO 8 H PRN P 02/15 completed Not Available Not Available Not Available hydrocodone 5 mg-acetamin ophen 325 mg tablet active Not Available Not Available No t Available metronidazo le 0.75 % (37.5 mg/5 gram) vaginal gel 02/15 completed Not Available Not Available Not Available ondansetron HCl 4 mg tablet 02/15 completed Not Available Not Available Not Available sumatriptan 50 mg tablet 07/08 completed Not Available Not Available Not Available acetaminoph en 300 mg-codeine 30 mg tablet 02/15 completed Not Available Not Available Not Available sulfamethox azole 800 mg-trimetho prim 160 mg tablet 02/15 completed Not Available Not Available Not Available oxycodone-a cetaminophe n 5 mg-325 mg tablet 02/15 completed Not Available Not Available Not Available famotidine 20 mg tablet 02/15 completed Not Available Not Available Not Available hydrocodone 7.5 mg-acetamin ophen 325 mg tablet 02/15 completed Not Available Not Available Not Available erythromyci n 5 mg/gram (0.5 %) eye ointment active Not Available Not Available Not Available promethazin e 25 mg tablet 02/15 completed Not Available Not Available Not Available polymyxin B sulfate 10,000 unit-trimet hoprim 1 mg/mL eye drops INSTILL 1 DROP IN RIGHT EYE FOUR TIMES DAILY. MAY USE EVERY 4 HOURS WHILE AWAKE FOR 7 DAYS 07/08 completed Not Available Not Available Not Available omeprazole 20 mg capsule,del ayed release active Not Available Not Available Not Available ergocalcife rol (vitamin D2) 1,250 mcg (50,000 unit) capsule TAKE 1 CAPSULE BY MOUTH WEEKLY FOR 12 WEEKS 07/08 completed Not Available Not Available Not Available ibuprofen 600 mg tablet 02/15 completed Not Available Not Available Not Available ondansetron 4 mg disintegrat ing tablet 02/15 completed Not Available Not Available Not Available neomycin-po lymyxin-hyd rocort 3.5 mg-10,000 unit/mL-1 % ear drops,susp 02/15 completed Not Available Not Available Not Available azithromyci n 500 mg tablet TAKE 2 TABLETS BY MOUTH AT ONE TIME 07/08 completed Not Available Not Available Not Available Previfem 0.25 mg-35 mcg tablet 02/15 completed Not Available Not Available Not Available chlorhexidi ne gluconate 0.12 % mouthwash 02/15 completed Not Available Not Available Not Available Hair,Skin and Nails 07/08 completed Not Available Not Available Not Available cholecalcif juan manuel (vitamin D3) 1,250 mcg (50,000 unit) capsule TAKE 1 CAPSULE BY MOUTH EVERY WEEK active Not Available Not Available No t Available Ubrelvy 50 mg tablet TAKE 1 TABLET BY MOUTH A SINGLE DOSE; IF SYMPTOMS PERSIST OR RETURN, MAY REPEAT DOSE AFTER 2 HOURS, MAXIMUM DAILY DOSE IS 100 MG PER 24 HOURS. active Not Available Not Available No t Available vitamin D3 1,250 mcg (50,000 unit)-vitam in K2 200 mcg capsule Take 1 capsule every week by oral route as directed. 2023 active Not Available Not Available Not Avai lable Zepbound 5 mg/0.5 mL subcutaneou s pen injector ADMINISTE R 5 MG UNDER THE SKIN 1 TIME WEEKLY FOR 4 WEEKS active Not Available Not Available No t Available Zepbound 2.5 mg/0.5 mL subcutaneou s pen injector ADMINISTE R 2.5 MG UNDER THE SKIN 1 TIME WEEKLY FOR 4 WEEKS active Not Available Not Available No t Available Vitals Date Recorded Body mass index (BMI) Body height Oxygen saturation Oxygen saturation in Arterial blood by Pulse oximetry Heart rate Body temperature Body weight Systolic blood pressure Diastolic blood pressure Provider Name and Address Organization Details Last Updated DateTime 1 63.4 kg/m2 167.64 cm 98 % 98 % 79 /min 97.1 [degF] 917595. 08 g 120 mm[Hg] 88 mm[Hg] Not Available [facility] 3 17:15:08 Date Recorded Body weight Body mass index (BMI) Body height Body temperature Heart rate Systolic blood pressure Diastolic blood pressure Provider Name and Address Organization Details Last Updated DateTime 4 936489. 86 g 43.9 kg/m2 170.18 cm 97.6 [degF] 78 /min 116 mm[Hg] 60 mm[Hg] FRED Lawson [place] [facility] 4 11:39:03 Social History Question Answer Notes LastModified by Organizat ion Details LastModified Time Tobacco Smoking Status Never Smoker Not Available [facility] 10/03/2022 17:14:56 Do You Have An Advance Directive? No Information not available 07/08/2024 What Is Your Level Of Caffeine Consumption? Heavy [id number] Information not available 10/03/2022 How Much Tobacco Do You Chew? None [id number] Information not available 10/03/2022 In The 14 Days Before Symptom Onset, Have You Had Close Contact With A Laboratory-confir med COVID-19 While That Case Was Ill? No [id number] Information not available 10/03/2022 In The 14 Days Before Symptom Onset, Have You Had Close Contact With A Person Who Is Under Investigation For COVID-19 While That Person Was Ill? No [id number] Information not available 10/03/2022 What Type Of Diet Are You Following? REGULAR [id number] Information not available 10/03/2022 Which Illicit Or Recreational Drugs Have You Used? None [id number] Information not available 10/03/2022 What Is The Highest Grade Or Level Of School You Have Completed Or The Highest Degree You Have Received? [id number] Information not available 07/08/2024 What Is The Fluoride Status Of Your Home? Unknown Information not available 07/08/2024 Are There Any Guns Present In Your Home? No [id number] Information not available 10/03/2022 Where Do You Live? SingleLevelHouse Information not available 07/08/2024 Do You Have A Medical Power Of Dictaphone Operator? No Information not available 07/08/2024 What Was The Date Of Your Most Recent Tobacco Screening? 07/08/2024 Information not available 07/08/2024 Do You Have Any Pets? Yes Information not available 07/08/2024 What Is Your Relationship Status? Single Information not available 07/08/2024 Do You Have Smoke And Carbon Monoxide Detectors In Your Home? Yes Information not available 07/08/2024 Are You Passively Exposed To Smoke? No Information no t available 07/08/2024 Are There Any Smokers In Your House? No Information not available 07/08/2024 How Much Tobacco Do You Smoke? No [id number] Information not available 10/03/2022 Has Tobacco Cessation Counseling Been Provided? No N/a Information not available 07/08/2024 How Many Years Have You Smoked Tobacco? 0 [id number] Information not available 10/03/2022 Have You Recently Traveled Abroad? No Information not available 07/08/2024 Sex: Unknown Functional Status Question Answer Note LastModified by Organizat ion Details LastModified Time Do you use any illicit or recreational drugs? No Information not available 07/08/2024 Do you or have you ever used any other forms of tobacco or nicotine? No Information not available 07/08/2024 What is your level of alcohol consumption? Occasional [id number] Information not available 10/03/2022 Do you or have you ever used smokeless tobacco? Never used smokeless tobacco [id number] Information not available 10/03/2022 Are you currently employed? 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 Never used electronic cigarettes [id number] Information not available 10/03/2022 What is your exercise level? None [id number] Information not available 10/03/2022 Mental Status Question Answer Note LastModified by Organization D etails LastModified Time Do you feel stressed (tense, restless, nervous, or anxious, or unable to sleep at night)? [id number] Information not available 07/08/2024 Family History Relationship Description Onset Age of this Age Resolved Age Notes LastModified by Organization Details LastModified Time Mother Congestive heart failure [id number] Not available 10/03/2022 17:15:02 Mother Chronic obstructive pulmonary disease [id number] Not available 10/03/2022 17:15:02 Mother Pulmonary emphysema [id number] Not available 10/03/2022 17:15:02 Unspecified Relation Family history of malignant neoplasm [id number] Not available 10/03/2022 17:15:02 Unspecified Relation Family history of malignant neoplasm [id number] Not available 10/03/2022 17:15:02 Father Migraine stemme d brain tumor Not available 07/08/2024 11:34:22 Medical History Condition Response HEADACHES/MIGRAINES Y ANXIETY DISORDER Y ANEMIA/BLOOD DISORDER Y EDEMA Y Gall Stones Y BREAST PROBLEMS Y HAVE YOU BEEN HOSPITALIZED OR SEEN IN [facility] IN THE PAST YEAR ? N HYPERTENSION Y Gynecological HistoryNo gynecological history recorded. Obstetrics History GPAL:G 0 P 0 0 0 0 Past Encounters Encounter ID Performer Location Encounter Start Date Encounter Closed Date Diagnosis/Indication Diagnosis SNOMED-CT Code Diagnosis ICD10 Code Diagnosis Note [id number] Sven maurer MD [facility] [place] [facility] [address] [facility] [address] [place] [address] 02/16/2021 00:00:00 02/16/2021 11:57:11 [id number] Sven maurer MD [facility] Primary Care [address] [place] [address] 07/08/2024 11:22:25 07/08/2024 12:16:28 Screening - NAD [id number] Z13.9 PAP: Sees Dr Henderson her OB Get yearly flu shot, get tdap if not done, get COVID 19 booster RTC in 3 months, do labs, ER if worse, she did verbalize her understand ing of the above Hyperlipid emia screening [id number] Z13.220 Vitamin D deficiency [id number] E55.9 Migraine [id number] G43.90 9 Was treated in the past with sumatripta nNow has new insurance and would like to get on UbrelvyAls o get MRI brain Obesity [id number] E66.9 Hx of gastric sleeveInte rested in GLP-1No hx of thyroid, parathyroi d or MCT or MEN2 symptomsSh e will d/w her insurance if this is approved Health Concerns Section Related Observation LastModified by Organization Detai ls LastModified Time None Recorded Concern Status LastModified by Organization Details LastModified Time None Recorded Advance Directives Directive N: Payers Encounter Date Sequence Insurance Name Policy Number Policy Goodson Covered Member ID Goodson Member ID Guarantor Name 07/08/2024 1 *SELF PAY* As hlyn Malady Notes Date Note Type Note Provider Name and Address Organization Details Recorded Time 07/08/2024 text/html OV 07/08/2024:Here to establish care Present Hx:MigraineObesi ty Here to discuss above, get med for her migraine and discuss her obesity Sven Ayala MD [address] [place] [address], [facility] [address], [place], [address], [place] [employer] [facility] 07/17/2024 12:52:08 OBGyn Episode No OBEpisode recorded.
[2024-12-31 09:11] LABS: BEDSIDEPREGUCG Negative (Negative)
--- OUTSIDE RECORDS SUMMARY | 2024-12-31 09:13 | XMS_ITS | Continuity of Care Document ---
Author Organization [facility] Address [address] [facility] [place] [address] Phone Care Team Providers Care Neon Sign Installer Name Role Phone Will Moore MD Unavailable [...] Providers Copied on Encounter OFFICE/OUTPA TIENT VISIT, [facility], [address] [place], [place], [address], [place] tel:[phone] [facility] D (chief complaint) glucose1 (chief complaint) anemia1 (chief complaint) obesity1 (chief complaint) HyperglycemiaVitami n D deficiency, unspecifiedAnemiaBo dy mass index (BMI) 50-59.9 , adult Jun- 7 Oscar Solis. [address] [place], [place], [address] , [place]. tel:[phone] Referring Provider: Will Moore, [address] [facility] [place], [address]. tel:[phone] OFFICE/OUTPA TIENT VISIT, [facility], [address] [place], [address], [place] tel:[phone] [facility] obesity1 (chief complaint) HTN (chief complaint) Essential (primary) hypertensionBody mass index (BMI) 50-59.9 , adult 7 Oscar Solis. [address], [place], [place], [address] , . tel:[phone] Referring Provider: Tad [address], [place], [place], [address]. tel:[phone] PREV VISIT, NEW, AGE 18-39 [facility], [address], [place], [place], [address], tel:[phone] [facility] PHysical (chief complaint) Encounter for general adult medical exam w abnormal findingsBody mass index (BMI) 50-59.9 , adultGERD w/o esophagitisEssentia l (primary) hypertension 7 Oscar Solis. [address], [place], [place], [address] , . tel:[phone] Referring Provider: Tad [address], [place], [place], [address]. tel:[phone] Family History Family Member Type Diagnosis Age At Onset Brother Problem (finding) Alive and well Mother Problem (finding) Hypertension Father Problem (finding) Unknown Mother Problem (finding) Obesity Payers Payer name Insurance type Covered libertarian ID Authoriza tion(s) No Information Social History [...] Mental Status Date Cognitive Assessment Orientation - [place] ed to time, place, person, situation.
--- OUTSIDE RECORDS SUMMARY | 2024-12-31 09:13 | XMS_ITS | Continuity of Care Document ---
Author Organization [facility] Address [address] [facility] [address] [place] [address] Phone Care Team Providers Care Garage Supervisor Name Role Phone Michelle OD, Dmitriy Unavailable Unavailable Advance Directives Directive Yes / No Effective Date File Name No Information Encounters Encounter Description Practice Location Reason(s) For Visit Diagnoses Date Provider Providers Copied on Encounter [facility], [address], [place], [place], [address], [place] tel:[phone] [facility] No Information May- 2-200 3 Michelle OD Dmitriy. [address] , [address], [place], [address], [place]. tel:[phone] Family History Family Member Type Diagnosis Age At Onset No Information Payers Payer name Insurance type Covered democrat ID Authoriza tion(s) Medicaid [facility] [id number] Social History Type Description Quantity Date Captured [...]
--- OUTSIDE RECORDS SUMMARY | 2024-12-31 09:13 | XMS_ITS | Continuity of Care Document ---
Author Organization [facility] Address [address] [facility] [place] [address] [place] [address] Phone Care Team Providers Care Striker Off Name Role Phone Will Moore MD Unavailable Unavailable Advance Directives Directive Yes / No Effective Date File Name No Information Encounters Encounter Description Practice Location Reason(s) For Visit Diagnoses Date Provider Providers Copied on Encounter [facility], [address] [place], [address], [place] tel:[phone] [facility] No Information Oscar Solis. [address] [place], [place], [address], [place]. tel:[phone] Family History Family Member Type Diagnosis Age At Onset No Information Payers Payer name Insurance type Covered libertarian [...]
--- NOTE | 2024-12-31 09:25 | ED_ITS ---
HPI - Abdominal Pain General Chief Complaint: Abdominal Pain Stated Complaint: RUQ pain, hematuria, urinary frequency Time Seen by Provider: 12/31/24 09:05 Source: patient Mode of arrival: ambulatory Limitations: no limitations History of Present Illness HPI narrative: This is a 29 year old female that presents to the ER for right sided abdominal pain. Ongoing since earlier this morning. Reports associated hematuria. History of kidney stones. Denies fevers or vomiting. Related Data Allergies Allergy/AdvReac Type Severity Reaction Status Date / Time No Known Allergies Allergy Verified 12/31/24 08:54 Review of Systems 2 Review of Systems: CONSTITUTIONAL: Denies fever GASTROINTESTINAL: Reports abdominal pain. Denies nausea, vomiting, or diarrhea. GENITOURINARY: Reports hematuria. All systems reviewed & are unremarkable except as noted in HPI and below PMFSH Past Medical History Medical History (Updated 12/31/24 @ 12:21 by Ning Holley PA-C) No active medical problems Social History Social History (Updated 12/31/24 @ 09:26 by Ning Holley PA-C) Smoking status: Never smoker Exam 2 Narrative: GENERAL: Well-appearing, well-nourished, and in no acute distress. HEAD: Normocephalic, atraumatic. EYES: EOMI. CHEST: Clear to auscultation. No respiratory distress. No wheezes rales or rhonchi HEART: Regular rate and rhythm. No murmur heard. Normal peripheral pulses. ABDOMEN: Soft, nontender, nondistended, normal active bowel sounds. EXTREMITIES: Normal range of motion. No edema. SKIN: Warm, dry, no rash. NEURO: No focal deficits. Alert and oriented x3. PSYCH: Normal mood and affect Course Course Emergency Course: Patient updated on workup and agrees with plan of care Vital Signs Vital signs: Vital Signs Temperature 97.5 F L 12/31/24 08:57 Pulse Rate 86 12/31/24 08:57 Respiratory Rate 16 12/31/24 08:57 Blood Pressure 137/91 H 12/31/24 08:57 Pulse Oximetry 98 12/31/24 08:57 Temperature 97.5 F L 12/31/24 08:57 Pulse Rate 58 L 12/31/24 12:25 Respiratory Rate 18 12/31/24 12:25 Blood Pressure 132/76 12/31/24 12:25 Pulse Oximetry 100 12/31/24 12:25 MDM - Abdominal Pain MDM Narrative Medical decision making narrative: Patient presents the emergency department for right-sided abdominal pain, hematuria. She is afebrile and nontoxic appearing. Cbc without leukocytosis. Metabolic panel with normal appearing kidney function. Urine with possible evidence of infection. This was sent for culture. Patient started on IV antibiotics. CT abdomen and pelvis showing no hydronephrosis or hydroureter. There is a small calcification in the left deep pelvis which the radiologist believes is a phleboliths. This does not correlate to where her pain is. Patient will be continued on oral antibiotics for hemorrhagic cystitis. She is to follow up with primary provider. She was given warnings to return to the ER Differential Diagnosis Differential diagnosis: Likely calculus of kidney and other (UTI) Lab Data Attestation: I reviewed the patient's lab results. 12/31/24 09:10 12/31/24 09:10 Labs: Lab Results 12/31/24 12/31/24 Range/Units 09:09 09:10 WBC 7.5 (4.5-10.0) K/mm3 RBC 4.10 L (4.2-5.4) M/mm3 Hgb 11.9 L (12.0-15.0) g/dL Hct 37.0 (37.0-47.0) % MCV 90.2 (80-100) fl MCH 29.0 (26-34) pg MCHC 32.2 (32-36) g/dl RDW 12.9 (11.5-14.5) % Plt Count 251 (150-375) k/mm3 MPV 10.7 H (7.4-10.4) fl Immature Gran % (Auto) 0.3 (0-0.5) % Neut % (Auto) 63.4 (45.5-73.1) % Lymph % (Auto) 28.1 (18.3-44.2) % [place] % (Auto) 6.8 (2.6-8.5) % Eos % (Auto) 0.9 (0-4.4) % Baso % (Auto) 0.5 (0.2-1.2) % Lymph # (Auto) 2.12 (0.9-3.2) K/mm3 [place]y # (Auto) 0.5 (0.1-0.6) K/mm3 Eos # (Auto) 0.1 (0-0.3) K/mm3 Baso # (Auto) 0.0 (0.0-0.1) K/mm3 Abs Immat Gran (auto) 0.02 (0.00-0.031) K/mm3 Absolute Neuts (auto) 4.8 (1.3-6.7) K/mm3 Absolute Nucleated RBC 0.000 (0.0-0.012) K/mm3 Nucleated RBC % 0.0 (0.0-0.2) % Sodium 139 (137-145) mmol/L Potassium 4.1 (3.4-5.0) mmol/L Chloride 105 (98-107) mmol/L Carbon Dioxide 25 (22-30) mmol/L Anion Gap 9 (4-12) mmol/L BUN 12 (7-17) mg/dL Creatinine 0.55 L (0.7-1.0) mg/dL Estim Creat Clear Calc 169 ml/min Estimated GFR > 60 (59 - ) Glucose 94 (65-110) mg/dL Calcium 9.3 (8.4-10.2) mg/dL Total Bilirubin 0.6 (0.2-1.3) mg/dL AST 18 (14-36) U/L ALT 11 (6-35) U/L Alkaline Phosphatase 91 (38-126) U/L Total Protein 8.0 (6.3-8.2) g/dL Albumin 4.3 (3.5-5.1) g/dL Lipase 98 (23-300) U/L Urine Color Red H (Yellow) Urine Appearance Cloudy H (Clear) Urine pH 6.0 (5.0-9.0) Ur Specific [place] 1.000 L (1.001-1.035) Urine Protein 2+ H (Negative) mg/dL Urine Glucose (UA) Negative (Negative) mg/dL Urine Ketones Negative (Negative) mg/dL Ur Blood (Man) 1+ H (Negative) Urine Nitrate Negative (Negative) Urine Bilirubin Negative (Negative) Urine Urobilinogen 0.2 (<2.0) mg/dL Leukocyte Esterase Rfl Trace H (Negative) RAE/UL Urine RBC >100 H (0-2) /hpf Urine WBC 6-10 H (0-3) /hpf Ur Squamous Epith Cells Occasional (Few) /hpf POC Urine HCG, Qual Negative (Negative) Imaging Data Radiologist's impression: ITS Impressions Abdomen/Pelvis CT 12/31/24 10:02 IMPRESSION: 1. 2 mm calcification in the deep left pelvis which appears more likely near but not definitively along the distalmost left ureter and would favor a phlebolith over nonobstructing renal stone. No hydronephrosis or hydroureter. 2. No other acute intra-abdominal/pelvic process. Critical Care Time Critical Care Time Critical Care Time: No Discharge Plan Discharge Clinical Impression: Acute UTI Patient Disposition: Home Condition: Stable Instructions: Urinary Tract Infection in Women (ED) Additional Instructions: Return to the ER if you experience fever, abdominal pain with nausea and vomiting, you are unable to keep down liquids or solids, or any other symptoms that are concerning to you Remain well hydrated. Take oral antibiotics as prescribed Follow up with your primary care doctor Patient Language: Macanese Prescriptions: New cefdinir 300 mg capsule 300 mg PO Q12H 7 Days Qty: 14 0RF Follow-up/Referrals: Lucy,MD Sven [Primary Care Provider] -
[2024-12-31 09:32] LABS: Alanine Aminotransferase 11 U/L (6-35); Albumin Level 4.3 g/dL (3.5-5.1); Alkaline Phosphatase 91 U/L (38-126); Anion Gap 9 mmol/L (4-12); Aspartate Amino Transferase 18 U/L (14-36); Basophils Percent Auto 0.5 % (0.2-1.2); Bilirubin,Total 0.6 mg/dL (0.2-1.3); Blood Urea Nitrogen 12 mg/dL (7-17); Calcium 9.3 mg/dL (8.4-10.2); Carbon Dioxide 25 mmol/L (22-30); Chloride 105 mmol/L (98-107); Eosinophils Absolute Auto 0.1 K/mm3 (0-0.3); Eosinophils Percent Auto 0.9 % (0-4.4); Estimated CRCL calculation 169 ml/min; Estimated Glomerular Filt Rate > 60; Glucose 94 mg/dL (65-110); Hemoglobin 11.9 g/dL (12.0-15.0); Immature Granulocyte Absolute 0.02 K/mm3 (0.00-0.031); Immature Granulocyte Percent A 0.3 % (0-0.5); Lipase 98 U/L (23-300); Lymphocytes Absolute Auto 2.12 K/mm3 (0.9-3.2); Lymphocytes Percent Auto 28.1 % (18.3-44.2); Mean Corpuscular HGB Conc 32.2 g/dl (32-36); Mean Corpuscular Volume 90.2 fl (80-100); Mean Platelet Volume 10.7 fl (7.4-10.4); Monocytes Absolute Auto 0.5 K/mm3 (0.1-0.6); Monocytes Percent Auto 6.8 % (2.6-8.5); Neutrophils Absolute Auto 4.8 K/mm3 (1.3-6.7); Neutrophils Percent Auto 63.4 % (45.5-73.1); Platelet Count Result 251 k/mm3 (150-375); Potassium 4.1 mmol/L (3.4-5.0); Red Cell Distribution Width 12.9 % (11.5-14.5); Sodium 139 mmol/L (137-145); White Blood Count 7.5 K/mm3 (4.5-10.0)
[2024-12-31 09:38] LABS: Add Urine Microscopic? YES; Bilirubin Urine Negative (Negative)
[2024-12-31 09:48] LABS: Appearance Urine Cloudy (Clear); Color Urine Red (Yellow); Glucose Urine UA Negative (Negative); Ketones Urine Negative (Negative); Protein Urine 2+ mg/dL (Negative)
[2024-12-31 09:49] LABS: Blood Urine 1+ (Negative); Leukocyte Esterase Ur Trace LEU/UL (Negative); Nitrate Urine Negative (Negative); RBC Urine >100 /hpf (0-2); Urobilinogen Urine 0.2 mg/dL (<2.0)
[2024-12-31 09:50] LABS: Squamous Epithelial Cell Urine Occasional /hpf (Few)
[2024-12-31 12:25] VITALS: BP 132/76; PULSE 58; RESP 18; O2SAT 100
== END 2024-12-31 12:33 | disposition home or self-care (01) ==
PROVIDERS: Emergency Provider Physician Assistant; PCP Internal Medicine
DX: N39.0 Urinary tract infection, site not specified (principal); R31.9 Hematuria, unspecified; Z87.442 Personal history of urinary calculi
CPT/HCPCS: 36415; 74176; 80053; 81001; 81025; 83690; 85025; 87086; 87186; 96365; 99284; J0696